=== PATIENT | female | born 1950 | race Caucasian/White ===

== ENCOUNTER 2017-06-07 17:32 | Inpatient (IN) | payer MEDICARE, OTHER ==
--- NOTE | 2017-06-07 17:58 | ED Physician Chart ---
ED Chief Complaint/HPI - Patient Information Date Seen:: 06/07/17 Time Seen:: 17:50 Chief Complaint:: agitation History of Present Illness:: Patient has been yelling and striking out at her [facility] facility. Historian:: Patient Review:: Nurse's Note Reviewed, Transfer documents Reviewed ED Review of Systems - Review of Systems General/Constitutional: No fever, No chills Skin: No skin lesions Head: No headache Eyes: No loss of vision ENT: No earache Neck: No neck pain Cardio Vascular: No chest pain, No palpitations Pulmonary: No SOB GI: No nausea, No vomiting, No diarrhea G/U: No dysuria Musculoskeletal: No bone or joint pain Endocrine: No polyuria, No polydipsia Psychiatric: No prior psych history, No depression Hematopoietic: No bruising Allergic/Immuno: No urticaria Neurological: No syncope ED Past Medical History - Past Medical History Past Medical History: HTN, Arthritis, Other (degenerative joint disease; bipolar ) Social History: Smoker, Care Facility Surgical History: other (gastric bypass) Psychiatricy History: Bipolar Medication: Reviewed Family Medical History - Family Member Mother History Unknown: Yes Ethnicity: Non- Living Status: Still Living ED Physical Exam - Physical Examination General/Constitutional: Awake, Well-developed, well-nourished, Alert Other Gen/Cons comments:: Alert and oriented to the correct month and year but not the date Head: Atraumatic Eyes: Lids, conjuctiva normal, PERRL Skin: Nl inspection, No rash, No skin lesions, No ecchymosis ENMT: External ears, nose nl, TM canals nl, Nasal exam nl, Oropharynx nl Other ENMT comments:: Upper lower dentures Neck: No mass Respiratory: Nl effort/Exclusion, Clear to Auscultation, No Wheeze/Rhonchi/Rales Cardio Vascular: RRR, No murmur, gallop, rubs, NL S1 S2 GI: No tenderness/rebounding/guarding, No organomegaly : No CVA tenderness Extremities: Normal digits & nails Neuro/Psych: No focal deficits ED Labs/Radiology/EKG Results - Lab Results Results: Laboratory Results - last 24 hr 06/07/17 06/07/17 06/07/17 18:06 18:06 18:06 WBC 5.7 RBC 4.06 Hgb 12.4 Hct 37.6 L MCV 92.5 MCH 30.5 MCHC Differential 33.0 RDW 18.4 Plt Count 308 MPV 7.4 Neutrophils % 54.6 Lymphocytes % 30.7 Monocytes % 11.1 H Eosinophils % 3.1 Basophils % 0.5 Sodium 136 Potassium 4.5 Chloride 106 Carbon Dioxide 23.8 Anion Gap 10.7 BUN 9 Creatinine 0.7 Est GFR ( Amer) > 60.0 Est GFR (Non-Af Amer) > 60.0 BUN/Creatinine Ratio 12.9 Glucose 86 Calcium 9.2 Total Bilirubin 0.3 AST 37 ALT 76 H Alkaline Phosphatase 144 H Total Protein 6.1 Albumin 4.0 Globulin 2.1 Albumin/Globulin Ratio 1.9 H Triglycerides 68 Cholesterol 180 LDL Cholesterol Direct 119 HDL Cholesterol 53 TSH 2.67 - EKG Interpretations Rate & Rhythm: normal sinus rhythm [place]: normal axis Comments:: Normal EKG ED Septic Shock - . Is Septic Shock (SBP<90, OR Lactate>4 mmol\L) present?: No ED Reassessment (Disposition) - Reassessment Reassessment Condition:: Unchanged - Diagnosis Diagnosis:: Bipolar disorder with agitation - Patient Disposition Admitted to:: [facility] Admitting Medical Physician:: Bradly Castillo Admitting Psych Physician:: Rosa Maria Markham Condition at Disposition:: Stable, Unchanged
[2017-06-07 18:14] LABS: % BASOPHILS 0.5 % (0.0-2.0); % EOSINOPHILS 3.1 % (0.0-5.0); % LYMPHOCYTES 30.7 % (20.0-50.0); % MONOCYTES 11.1 % (2.0-10.0); % NEUTROPHILS 54.6 % (40.0-80.0); EOSINOPHILE ABSOLUTE 0.2 Th/cmm (0.1-0.4); HEMATOCRIT 37.6 % (41.0-60); HEMOGLOBIN 12.4 gm/dL (12-16); LYMPHOCYTE ABSOLUTE 1.7 Th/cmm (1.5-3.0); MEAN CELL VOLUME 92.5 fl (81-100); MEAN CORPUSCULAR HEMOGLOBIN 30.5 pg (27.0-31.0); MEAN PLATELET VOLUME 7.4 fl; MONOCYTE ABSOLUTE 0.6 Th/cmm (0.3-1.0); NEUTROPHILE ABSOLUTE 3.2 Th/cmm (1.8-8.0); PLATELET COUNT 308 Th/cmm (150-400); RED BLOOD COUNT 4.06 Mil/cmm (3.80-5.10); RED CELL DISTRIBUTION WIDTH 18.4 % (11.5-20.0); WHITE BLOOD COUNT 5.7 Th/cmm (4.8-10.8)
[2017-06-07 19:01] LABS: ALB/GLOB RATIO 1.9 (1.0-1.8); ALKALINE PHOSPHATASE 144 U/L (34-104); ANION GAP 10.7 (7.0-16.0); BILIRUBIN,TOTAL 0.3 mg/dL (0.3-1.0); BUN - UREA NITROGEN 9 mg/dL (7-25); CALCIUM SERUM 9.2 mg/dL (8.6-10.3); CARBON DIOXIDE 23.8 mEq/L (21.0-31.0); CHLORIDE 106 mEq/L (98-107); CHOLESTEROL 180 mg/dL (<200); CREATININE - SERUM 0.7 mg/dL (0.6-1.2); GFR AFRICAN-AMERICAN > 60.0 ml/min (>90); GFR NON AFRICAN-AMERICAN > 60.0 ml/min; GLUCOSE 86 mg/dL (70-105); HDL -HIGH DENSITY LIPOPROTEIN 53 mg/dL (23-92); POTASSIUM SERUM 4.5 mEq/L (3.5-5.1); SGOT 37 U/L (13-39); SGPT/ALT 76 U/L (7-52); SODIUM SERUM 136 mEq/L (136-145); TOTAL PROTEIN,SERUM 6.1 gm/dL (6.0-8.3); TRIGLYCERIDES 68 mg/dL (<150)
[2017-06-07 20:04] LABS: A1C % 5.1 % (4.0-6.0)
[2017-06-07 20:29] VITALS: BP 117/67
[2017-06-07] MEDS ORDERED: Magnesium Hydroxide (MOM) 30 mL UDC PO PRN (22:27)
[2017-06-07] MEDS ORDERED: Maalox 30 mL Cup PO PRN (22:27)
[2017-06-08] MEDS ORDERED: Ferrous Sulfate 325 MG TAB PO SCH (09:00)
[2017-06-08] MEDS: Multivitamin Tab PO SCH (09:47)
--- NOTE | 2017-06-08 11:03 | History & Physical ---
ADMIT DATE: 06/07/2017 CHIEF COMPLAINT: Yelling, screaming and striking out staff at [facility]-way facility. HISTORY OF PRESENT ILLNESS: The patient is a confused 66-year-old female. She has history of hypertension, psychosis, dementia and neuropathy and anemia. She presents from half-way facility. She was transferred because she was yelling, screaming and striking out at the staff. She was also experiencing worsening confusion and lethargy and overall decline as well. PAST MEDICAL HISTORY: Significant for Alzheimer's dementia, neuropathic pain, insomnia, anemia of chronic illness. SOCIAL HISTORY: No history of alcohol, tobacco, or drug abuse. FAMILY HISTORY: Noncontributory. ALLERGIES: No known drug allergies. SURGICAL HISTORY: Apparently, she has history of gastric bypass. MEDICATIONS: All medication reviewed and reconciled. REVIEW OF SYSTEMS: GENERAL: Positive recent fatigue, decreased appetite and worsening confusion. HEENT: No recent head trauma or change in vision, taste, hearing, or smell. ORAL: No recent pain or discharge. NECK: No recent tracheal deviation. NEUROLOGIC: She has history of Alzheimer's dementia. PSYCHIATRIC: Positive for psychosis and bipolar disorder. EXTREMITIES: No recent edema. MUSCULOSKELETAL: She has history of unsteady gait. SKIN: No recent rashes. ABDOMEN: No recent pain or distension. RESPIRATORY: No history of COPD or asthma. MUSCULOSKELETAL: She does have a history of DJD, but no acute pain. GENITOURINARY: Denies any increased urinary frequency, urgency or dysuria. PHYSICAL EXAMINATION: VITAL SIGNS: Temperature 98 degrees, heart rate is 65, respiration is 18, blood pressure 140/68, currently no pain. GENERAL: No acute distress. She is awake. Currently, she is very confused, but she is pleasant, no aggressive behavior. Right now, she is resting. She does have labile mood. HEENT: No acute issues. NECK: Trachea is midline. CARDIOVASCULAR: Regular rate and rhythm. SKIN: No rashes. PSYCHIATRIC: She has labile mood. EXTREMITIES: No edema. MUSCULOSKELETAL: Decreased muscle strength in lower extremities. NEUROLOGIC: No evidence of acute stroke or seizure activity. She does have dementia. CARDIOVASCULAR: Regular rate and rhythm. LABORATORY DATA: White count of 5.7; hemoglobin is 12.4; platelet count is 208,000. Sodium 136, potassium 4.5, chloride 106, bicarbonate 23.8, BUN 9, creatinine 0.7, ALT 76, alkaline phosphatase 144. TSH 2.67. ASSESSMENT: 1. Hypertension. 2. Metabolic encephalopathy. 3. Transaminitis. 4. Dementia, Alzheimer's type with exacerbation. 5. Neuropathic pain. 6. Insomnia. 7. Bipolar disorder. PLAN: I have stopped the iron since the patient's hemoglobin is normal now. MCV is also normal. I will also stop the Motrin because of the side effect profile. Continue Tylenol as needed. However, I will do ultrasound of the abdomen because of transaminitis. Continue Neurontin for the neuropathic pain. Currently, she is stable. She is on spironolactone for her hypertension. Monitor electrolytes closely. Continue Ambien as needed for her insomnia. She can benefit from inpatient psychiatric care. Dr. Markham will be the psychiatrist on the case. JOB# [id number]
--- NOTE | 2017-06-08 13:10 | Diagnostic Imaging Report ---
Ultrasound abdomen HISTORY: Transaminitis COMPARISON: None Technique: Sonography of the abdomen was performed in multiple planes. FINDINGS: Exam is limited due to body habitus and bowel gas. The liver demonstrates mild increased echogenicity. The liver margins are not well-defined however no obvious focal lesions. The liver measures 16 cm. The gallbladder was not well visualized. Gallstones cannot be excluded. The common bile duct measures 5 mm. Evaluation of the pancreas is limited due to bowel gas. The right kidney measures 9.7 x 4.7 cm. No evidence of focal lesions or hydronephrosis. The left kidney measures 11.2 x 5.8 cm. 5 mm echogenic focus of the left kidney is noted. No evidence of hydronephrosis. The spleen measures 8 cm. IMPRESSION: Limited exam due to bowel gas and body habitus. The gallbladder was not well-visualized. If patient has a gallbladder, gallstones cannot be excluded and further assessment with additional images following appropriate fasting is recommended. No evidence of common bile duct dilatation. Mild increased echogenicity of the liver which may affect underlying hepatocellular disease. Please correlate clinically. 5 mm echogenic focus of the left kidney which may represent renal sinus fat versus a nonobstructive stone.
--- NOTE | 2017-06-09 02:33 | Psychosocial Evaluation ---
DATE OF SERVICE: 06/07/2017 IDENTIFYING DATA: The patient is a 66-year-old woman, resident of [facility]. Information obtained directly interviewing the patient as well as reviewing the admission papers and they are reliable. JUSTIFICATION FOR HOSPITALIZATION: The patient is admitted here on a voluntary basis in view of her acute mood swings and agitation. CHIEF COMPLAINT: "I do not know what they are talking about." HISTORY OF PRESENT ILLNESS: This is the first psychiatric hospitalization for this patient, who has been diagnosed to have bipolar disorder and the patient is reported to have been getting easily irritable, angry, and has been getting out of control. The patient could not be contained at a lower level of care and hence, the patient has been brought over here for stabilization. 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 The patient, during the interview, has been having difficult time to cope with the stress. The patient's coping skills at the time of the evaluation are noted to be poor. The patient's sleep and appetite are also noted to be poor. PAST PSYCHIATRIC HISTORY: Details are not known. MEDICAL HISTORY: Physical examination is requested to be done by Dr. Castillo. SUBSTANCE ABUSE HISTORY: None. PHYSICAL AND SEXUAL ABUSE HISTORY: None. LEGAL PROBLEMS: None at this time. MENTAL STATUS EXAMINATION: The patient is a 66-year-old woman, looking her stated age, sitting in the wheelchair. Coping skills are noted to be extremely poor. Sleep and appetite also noted to be poor. The patient has been having difficult time to cope with the stress. No side effects to the medications are noted at this time. The patient has been irritable and angry when I am asking the questions. The patient, however, is noted to be alert and oriented x 3. Attention span and concentration are noted to be fair at this time. No side effects to the medications are noted. ASSESSMENT: The patient's behavior is likely a danger to self and the patient is gravely disabled. DIAGNOSTIC IMPRESSION: AXIS I: Bipolar disorder, mixed with psychotic symptoms. AXIS II: None. AXIS III: As per Dr. Castillo. IMMEDIATE TREATMENT PLAN: The patient is going to be observed on the Inpatient Unit, provided with supportive psychotherapy. The patient is going to be closely monitored. Once stabilized, the patient is going to be discharged to self to be followed up on an outpatient basis. JOB# [id number] DANDRE
[2017-06-09] MEDS: Multivitamin Tab PO SCH (08:27)
--- NOTE | 2017-06-09 17:34 | Progress Notes ---
DATE: 06/09/2017 SUBJECTIVE: Staff was spoken to. The patient is interviewed. Mood is noted to be irritable. Affect is constricted. The patient is having acute mood swings. Insight and judgment at this time are noted to be impaired. Impulse control seems to be limited. Coping skills are noted to be limited. ASSESSMENT: The patient is still having acute mood swings. PLAN: To continue the patient with the current medications and followup. [facility]# [id number]
[2017-06-10] MEDS: Multivitamin Tab PO SCH (09:24)
--- NOTE | 2017-06-10 16:08 | Progress Notes ---
DATE: 06/10/2017 SUBJECTIVE: Staff was spoken to. The patient is interviewed. Mood is noted to be elated. Affect is labile. The patient's insight and judgment are at noted to be still impaired. Impulse control seems to be poor. The patient is very intrusive. Coping skills are noted to be very poor at this time. ASSESSMENT: The patient is still having acute mood swings. PLAN: To increase the dose on the Seroquel and follow up. JOB# [id number]
[2017-06-11] MEDS: Multivitamin Tab PO SCH (08:58)
--- NOTE | 2017-06-12 03:41 | Progress Notes ---
DATE: 06/11/2017 SUBJECTIVE: Staff was spoken to. The patient is interviewed. Mood is noted to be irritable. Affect is constricted. Insight and judgement at this time noted to be still impaired. Impulse control seems to be limited. The patient is currently on Seroquel 25 mg at bedtime and has also been feeling frustrated. The patient is stating that she has been eating a lot and has been getting too much of weight and she states that she does not like it. The patient is stating that the medications have been of some help to her so far and the patient has been able to tolerate. ASSESSMENT: The patient's mood swings are still a problem. PLAN: To continue the patient with the current medications. I encourage the patient to verbalize the concerns rather than to act out. [facility]# [id number]
--- NOTE | 2017-06-12 08:22 | Consultation ---
DATE OF CONSULTATION: 06/09/2017 REQUESTING PHYSICIAN: Rosa Maria Markham M.D. TYPE OF CONSULTATION: Psychology. HISTORY OF PRESENT ILLNESS: The patient is a 66-year-old female. The patient is a resident of [facility]. The patient is being admitted due to acute mood swings and increased agitation. The following is by review of the medical record and by the patient's self report. According to record review, the patient has been getting easily irritable and angry and demonstrating uncontrollable behavior according to the staff at the patient's facility. The patient states that she is having difficulty coping at her facility. The patient denied any responsibility for the behavior reported by the staff at her facility. The patient stated that she believes she is doing well and does not understand why she is being hospitalized. The patient denied any suicidal ideation, plan or intention or any hopelessness or helplessness. PAST MEDICAL HISTORY: Please see history and physical by Dr. Castillo. PAST PSYCHIATRIC HISTORY: Records unavailable at the time of the clinical interview. SUBSTANCE ABUSE HISTORY: The patient did not answer these questions and records are unavailable. CURRENT MEDICATIONS: Please see admission medication reconciliation. PSYCHOSOCIAL HISTORY: The patient is a resident of [facility]. 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 She has no specific sikhism affiliation. The patient did not answer questions about history of physical or sexual abuse. The patient stated there are no legal issues. MENTAL STATUS EXAMINATION: The patient appears to be her stated age. The patient's attitude is superficially cooperative. The patient's eye contact is fair. Speech is spontaneous, but somewhat pressured. The patient's mood seems to be fluctuating from cooperation to irritability during the clinical interview. Affect is broad. Thought process seems to be concrete and perseverating on the issue of being hospitalized. The patient denies any behavioral problems at her facility. Impulse control is inadequate. Sensorium is alert and oriented x3. Concentration seems to be fair. She was able to sustain focus and answer most of the clinical interview questions even though she became irritable during the interview. The patient did not participate in the memory assessment. Immediate memory seems to be intact. Short term memory is fair to poor. Long-term memory needs further evaluation. The patient did not participate in the interpretation of proverbs. Insight is poor. Judgment is compromised. DIAGNOSTIC IMPRESSION: AXIS I: Bipolar disorder, mixed, with psychotic symptoms. AXIS II: Deferred. AXIS III: Please see history and physical by Dr. Castillo. PLAN: The patient has been seen by Dr. Markham for psychiatric evaluation and for the management of the patient's psychotropic medications. We will provide supportive psychotherapy to include coping mechanisms with chronic long-term mental illness. We will provide a simple de-escalation skill as well as motivational enhancement for the patient to become compliant and stay compliant with all aspects of her care and treatment plan. We will provide coping strategies to encourage the patient to verbalize her concerns versus acting out and to be able to regulate her emotions so that she can communicate with staff at her facility. Thank you, Dr. Markham for this consult and the opportunity to participate with you in this patient's care. JOB# [id number] DANDRE
[2017-06-12] MEDS: Multivitamin Tab PO SCH (08:52)
--- NOTE | 2017-06-12 19:53 | Progress Notes ---
DATE: 06/12/2017 SUBJECTIVE: Staff was spoken to. The patient is interviewed. Mood is depressed. Affect is constricted. Coping skills are noted to be still poor. Insight and judgment are also noted to be impaired. No side effects to the medications are noted. The patient is currently on 10 mg of ____ and 25 mg of the Seroquel and has been able to tolerate the medications. No side effects to the medications are noted. ASSESSMENT: The patient is still depressed. PLAN: To continue the patient with the supportive therapy, encouraged the patient to verbalize the concerns rather than to act out. JOB# [id number]
[2017-06-13] MEDS: Multivitamin Tab PO SCH (09:33)
--- NOTE | 2017-06-13 16:30 | Progress Notes ---
DATE: 06/13/2017 PSYCHIATRIC PROGRESS NOTE SUBJECTIVE: Staff was spoken to. The patient is interviewed. Mood is noted to be irritable. Affect is constricted. Coping skills are noted to be still poor. Sleep and appetite are also noted to be poor. The patient has been having difficult time to cope with the stress. The patient is currently on Prozac and has been able to tolerate. ASSESSMENT: The patient is still depressed. PLAN: To continue the patient with the supportive therapy and followup. [facility]# [id number]
[2017-06-14] MEDS: Multivitamin Tab PO SCH (09:10)
--- NOTE | 2017-06-15 02:26 | Progress Notes ---
DATE: 06/14/2017 SUBJECTIVE: Staff was spoken to. The patient is interviewed. Mood is noted to be irritable. Affect is constricted. Insight and judgment are noted to be still improving. Impulse control seems to be limited. The patient has been stating that she is feeling ill and very depressed today and the patient did not sleep well last night. No side effects to the medications are noted. Continues to have paranoia. PLAN: To increase the dose on the Seroquel to 50 mg. I encouraged the patient to verbalize the concerns rather than to act out. The patient is not ready to be discharged to a lower level of care yet because of her mood swings and impulsivity. JOB# [id number]
[2017-06-15] MEDS: Multivitamin Tab PO SCH (09:51)
--- NOTE | 2017-06-15 10:39 | General Progress Note ---
Subjective - Review of Systems Service Date: 06/15/17 Events since last encounter: Nursing called me because the patient is unstable on her feet and is a fall risk. A pt eval has been requested. Patient is currently using a wheelchair for ambulation. No recent falls. Subjective: The patient is resting in her wheelchair. No s/s pain or distress. Denies fevers or chills. Denies chest pain, sob, abd pain, dysuria or falls. Objective - Results Result Diagrams: 06/07/17 18:06 06/07/17 18:06 Recent Labs: Laboratory Last Values WBC 5.7 Th/cmm (4.8-10.8) 06/07/17 18: RBC 4.06 Mil/cmm (3.80-5.10) 06/07/17 18: Hgb 12.4 gm/dL (12-16) 06/07/17 18: Hct 37.6 % (41.0-60) L 06/07/17 18: MCV 92.5 fl (81-100) 06/07/17 18: MCH 30.5 pg (27.0-31.0) 06/07/17 18: MCHC Differential 33.0 pg (28.0-36.0) 06/07/17 18: RDW 18.4 % (11.5-20.0) 06/07/17 18: Plt Count 308 Th/cmm (150-400) 06/07/17 18: MPV 7.4 fl 06/07/17 18: Neutrophils % 54.6 % (40.0-80.0) 06/07/17 18: Lymphocytes % 30.7 % (20.0-50.0) 06/07/17 18: Monocytes % 11.1 % (2.0-10.0) H 06/07/17 18: Eosinophils % 3.1 % (0.0-5.0) 06/07/17 18: Basophils % 0.5 % (0.0-2.0) 06/07/17 18:06 Sodium 136 mEq/L (136-145) 06/07/17 18: Potassium 4.5 mEq/L (3.5-5.1) 06/07/17 18:06 Chloride 106 mEq/L (98-107) 06/07/17 18:06 Carbon Dioxide 23.8 mEq/L (21.0-31.0) 06/07/17 18:06 Anion Gap 10.7 (7.0-16.0) 06/07/17 18:06 BUN 9 mg/dL (7-25) 06/07/17 18:06 Creatinine 0.7 mg/dL (0.6-1.2) 06/07/17 18: Est GFR ( Amer) > 60.0 ml/min (>90) 06/07/17 18:06 Est GFR (Non-Af Amer) > 60.0 ml/min 06/07/17 18: BUN/Creatinine Ratio 12.9 06/07/17 18: Glucose 86 mg/dL (70-105) 06/07/17 18: Hemoglobin A1c % 5.1 % (4.0-6.0) 06/07/17 18: Calcium 9.2 mg/dL (8.6-10.3) 06/07/17 18: Total Bilirubin 0.3 mg/dL (0.3-1.0) 06/07/17 18:06 AST 37 U/L (13-39) 06/07/17 18:06 ALT 76 U/L (7-52) H 06/07/17 18:06 Alkaline Phosphatase 144 U/L (34-104) H 06/07/17 18:06 Total Protein 6.1 gm/dL (6.0-8.3) 06/07/17 18: Albumin 4.0 gm/dL (3.7-5.3) 06/07/17 18: Globulin 2.1 gm/dL 06/07/17 18: Albumin/Globulin Ratio 1.9 (1.0-1.8) H 06/07/17 18:06 Triglycerides 68 mg/dL (<150) 06/07/17 18:06 Cholesterol 180 mg/dL (<200) 06/07/17 18:06 LDL Cholesterol Direct 119 mg/dL (75-193) 06/07/17 18:06 HDL Cholesterol 53 mg/dL (23-92) 06/07/17 18: TSH 2.67 uIU/ml (0.34-5.60) 06/07/17 18:06 RPR NONREACTIVE (NONREACTIVE) 06/07/17 18:06 - Physical Exam Vitals and I&O: Vital Signs Temp 98.5 F 06/14/17 14:30 Pulse 72 06/15/17 09:52 Resp 18 06/14/17 14:30 BP 120/62 06/15/17 09:52 Pulse Ox 98 06/14/17 14:30 Active Medications: Current Medications Acetaminophen (Tylenol) 650 mg PO Q4HR PRN PRN Reason: Mild Pain / Temp above 100 Stop: 08/06/17 22:26 Last Admin: 06/15/17 05:35 Dose: 650 mg Al Hydrox/Mg Hydrox/Simethicone (Maalox) 30 ml PO Q4HR PRN PRN Reason: GI DISTRESS Stop: 08/06/17 22:26 Ascorbic Acid (Vitamin C) 500 mg PO DAILY [facility] Stop: 08/07/17 08:59 Last Admin: 06/15/17 09:52 Dose: 500 mg Docusate Sodium (Colace) 100 mg PO BID [facility] Stop: 08/07/17 08:59 Last Admin: 06/15/17 09:52 Dose: 100 mg Fluoxetine HCl (Prozac) 10 mg PO DAILY [facility] PRN Reason: Protocol Stop: 08/07/17 08:59 Last Admin: 06/15/17 09:51 Dose: 10 mg Gabapentin (Neurontin) 300 mg PO TID [facility] Stop: 08/07/17 08:59 Last Admin: 06/15/17 09:51 Dose: 300 mg Lorazepam (Ativan) 0.5 mg PO Q4HR PRN; Protocol PRN Reason: Anxiety/AGITATION Stop: 07/07/17 22:26 Last Admin: 06/07/17 23:29 Dose: 0.5 mg Multivitamins/Vitamin C (Theragran) 1 tab PO DAILY [facility] Stop: 08/07/17 08:59 Last Admin: 06/15/17 09:51 Dose: 1 tab Quetiapine Fumarate (Seroquel) 50 mg PO HS [facility] PRN Reason: Protocol Stop: 08/13/17 19:11 Last Admin: 06/14/17 20:32 Dose: 50 mg Spironolactone (Aldactone) 25 mg PO DAILY [facility] Stop: 08/07/17 08:59 Last Admin: 06/15/17 09:52 Dose: 25 mg Trazodone HCl (Desyrel) 25 mg PO HS [facility] PRN Reason: Protocol Stop: 08/07/17 20:59 Last Admin: 06/14/17 20:32 Dose: 25 mg Zolpidem Tartrate (Ambien) 5 mg PO HS PRN PRN Reason: Insomnia Stop: 08/06/17 22:26 Last Admin: 06/14/17 20:32 Dose: 5 mg General: Cooperative, No acute distress HEENT: PERRLA, EOMI Neck: Supple Cardiovascular: Regular rate, Normal S1, Normal S2 Lungs: Clear to auscultation, Normal air movement Abdomen: Bowel sounds Neurological: Other (ms str 4/5) Psych/Mental Status: Other (confused) Assessment/Plan - Assessment Assessment: metabolic encephalopathy 2/2 dementia exacerbation htn transamnitis neuropathy insomnia bipolar d/o - Plan Plan: A pt eval was ordered. Monitor for falls. No recent falls. Fall precautions. Out of wheelchair with assistance. Continue psychiatric tx Nutritional Asmnt/Malnutr-PDOC - Dietary Evaluation Malnutrition Findings (Please click <Entered> for more info): Nutritional Asmnt/Malnutrition Start: 06/12/17 17: 10 Text: Status: Complete Freq: Document 06/12/17 17:11 LIDIA (Rec: 06/12/17 17:15 [facility] Nutritional Asmnt/Malnutrition Patient General Information Nutritional Screening Moderate Risk Diagnosis psychosis Pertinent Medical Hx/Surgical Hx HTN, psychosis, dementia, neuropathy, anemia, insomnia Subjective Information Pt seen sitting in dinning room, having lunch, alert and pleasant. Pt reported good appetitie, no food preference. Per EMR, PO intake 100% Current Diet Order/ [facility] finely chopped, ANDREW Pertinent Medications vit C, coalce, theragran, serqoeul Pertinent Labs 06/07 nutrition labs WNL Nutritional Hx/Data Height 1.63 m Height (Calculated Centimeters) 162.6 Current Weight (lbs) 63.503 kg Weight (Calculated Kilograms) 63.5 Weight (Calculated Grams) 58226.9 [place] Body Weight 120 Body Mass Index (BMI) 24.0 Weight Status Approriate GI Symptoms GI Symptoms None Last BM 4/2 Difficult in: None Skin Integrity/Comment: intact Current %PO Good (75-100%) Estimated Nutritional Goals BEE in Kcals: Using Current wt Calories/Kcals/Kg 25-30 Kcals Calculated 1392-5127 Protein: Using Current wt Protein g/k Protein Calculated 64 Fluid: ml 1600-1920ml (1ml/ckal) Nutritional Problem No current Nutrition Prob Problem N/A Malnutrition Alert Protein-Calorie Malnutrition Non-Severe Is there a minimum of two criteria No selected? Query Text:Check all the applicable criteria. A minimum of two criteria are recommended for diagnosis of either severe or non-severe malnutrition. Intervention/Recommendation Comments 1. Continue with current diet as ordered. 2. Monitor PO intake, wt, labs and skin integrity 3. F/U as low risk in 7 days, 10 Expected Outcomes/Goals Expected Outcomes/Goals 1. PO intake to meet at least 75% of nutritional needs. 2. Wt stability, skin to remain intact, labs to approach WNL.
--- NOTE | 2017-06-16 04:18 | Progress Notes ---
DATE: 06/15/2017 SUBJECTIVE: Staff was spoken to. The patient is interviewed. Mood is noted to be irritable. Affect is constricted. The patient has paranoia. The patient has been a little bit confused this evening and has been going on a tangent. Insight and judgment noted to be still impaired. Impulse control is noted to be poor. The patient has been able to tolerate the Seroquel and Prozac. No side effects to the medications are noted. ASSESSMENT: The patient is still having the impulsivity. PLAN: To continue the patient with the supportive therapy and followup. JOB# [id number]
[2017-06-16] MEDS: Multivitamin Tab PO SCH (08:55)
--- NOTE | 2017-06-16 16:56 | Progress Notes ---
DATE: 06/16/2017 PSYCHIATRIC PROGRESS NOTE IDENTIFYING DATA: The patient is cooperative. Eye contact is fair. Mood is irritable. Affect is constricted. Insight and judgment at this time are noted to be improving. Impulse control seems to be fair today. No side effects to the medications are noted. The patient's sleep and appetite are noted to be improving at this time. The patient is currently on low dose of Prozac and Seroquel and has been able to tolerate the medications. ASSESSMENT: The patient's mood swings are coming under control. PLAN: To continue the patient with the supportive therapy. I encouraged the patient to verbalize the concerns rather than to act out. JOB# [id number]
[2017-06-17] MEDS: Multivitamin Tab PO SCH (08:17)
--- NOTE | 2017-06-17 17:12 | Progress Notes ---
DATE: 06/17/2017 SUBJECTIVE: Staff was spoken to. The patient is interviewed. Mood is noted to be less irritable. Mood swings are coming under control. Sleep and appetite also noted to be improving. No side effects to the medications are noted. The patient has been able to verbalize the concerns rather than to act out. ASSESSMENT: The patient is stabilizing. PLAN: To continue the patient with the current medications and follow up with the supportive therapy. JOB# [id number]
[2017-06-18] MEDS: Multivitamin Tab PO SCH (08:52)
--- NOTE | 2017-06-19 02:02 | Progress Notes ---
DATE: 06/18/2017 SUBJECTIVE: Staff was spoken to. The patient is interviewed. Mood is noted to be irritable. Affect is constricted. Insight and judgment at this time are noted to be improving. Impulse control seems to be fair. The patient's mood swings are coming under control. The patient has been able to verbalize the concerns rather than to act out. No side effects to the medications are noted. ASSESSMENT: The patient is stabilizing. PLAN: To discharge the patient today for followup on an outpatient basis. JOB# [id number]
== END 2017-06-18 20:30 | DRG 885 ==
LOC: ER 17:32 → GERO 19:38
PROVIDERS: ADMIT Psychiatry & Neurology Psychiatry; ATTEND Psychiatry & Neurology Psychiatry
DX: F31.64 Bipolar disorder, current episode mixed, severe, with psychotic features (principal); F02.81 Dementia in other diseases classified elsewhere, unspecified severity, with behavioral disturbance; G93.41 Metabolic encephalopathy; G30.9 Alzheimer's disease, unspecified; I10 Essential (primary) hypertension; G62.9 Polyneuropathy, unspecified; G47.00 Insomnia, unspecified; R74.0 Nonspecific elevation of levels of transaminase and lactic acid dehydrogenase [LDH]; F17.210 Nicotine dependence, cigarettes, uncomplicated; M19.90 Unspecified osteoarthritis, unspecified site
CPT/HCPCS: 36415-UA; 76700-TC; 80053-TC; 80061-TC; 83036-90; 84443-TC; 85025-TC; 86592-TC; 90899; 93005; 97530; G0410; X3904; Z7610

== ENCOUNTER 2018-01-07 21:00 | Inpatient (IN) | payer MEDICARE, OTHER ==
[2018-01-07 21:48] LABS: % BASOPHILS 0.9 % (0.0-2.0); % EOSINOPHILS 3.3 % (0.0-5.0); % LYMPHOCYTES 25.6 % (20.0-50.0); % MONOCYTES 10.6 % (2.0-10.0); % NEUTROPHILS 59.6 % (40.0-80.0); BASOPHILE ABSOLUTE 0.1 Th/cumm (0-0.2); EOSINOPHILE ABSOLUTE 0.2 Th/cmm (0.1-0.4); HEMATOCRIT 37.1 % (41.0-60); HEMOGLOBIN 12.1 gm/dL (12-16); LYMPHOCYTE ABSOLUTE 1.9 Th/cmm (1.5-3.0); MEAN CELL VOLUME 93.5 fl (81-100); MEAN CORPUSCULAR HEMOGLOBIN 30.5 pg (27.0-31.0); MEAN CORPUSCULAR HGB CONC 32.6 pg (28.0-36.0); MEAN PLATELET VOLUME 7.4 fl; MONOCYTE ABSOLUTE 0.8 Th/cmm (0.3-1.0); NEUTROPHILE ABSOLUTE 4.5 Th/cmm (1.8-8.0); PLATELET COUNT 325 Th/cmm (150-400); RED BLOOD COUNT 3.96 Mil/cmm (3.80-5.20); RED CELL DISTRIBUTION WIDTH 19.4 % (11.5-20.0); WHITE BLOOD COUNT 7.5 Th/cmm (4.8-10.8)
[2018-01-07 22:12] LABS: ACETAMINOPHEN < 10.0 ug/mL (10.0-30.0); ALB/GLOB RATIO 1.8 (1.0-1.8); ALBUMIN 3.6 gm/dL (3.7-5.3); ALKALINE PHOSPHATASE 86 U/L (34-104); BILIRUBIN,TOTAL 0.3 mg/dL (0.3-1.0); BUN - UREA NITROGEN 12 mg/dL (7-25); CALCIUM SERUM 8.4 mg/dL (8.6-10.3); CARBON DIOXIDE 24.9 mEq/L (21.0-31.0); CHLORIDE 105 mEq/L (98-107); CHOLESTEROL 167 mg/dL (<200); CREATININE - SERUM 0.7 mg/dL (0.6-1.2); GFR AFRICAN-AMERICAN > 60.0 ml/min (>90); GFR NON AFRICAN-AMERICAN > 60.0 ml/min; GLUCOSE 88 mg/dL (70-105); HDL -HIGH DENSITY LIPOPROTEIN 51 mg/dL (23-92); POTASSIUM SERUM 3.9 mEq/L (3.5-5.1); SGOT 14 U/L (13-39); SGPT/ALT 20 U/L (7-52); SODIUM SERUM 138 mEq/L (136-145); TOTAL PROTEIN,SERUM 5.6 gm/dL (6.0-8.3); TRIGLYCERIDES 67 mg/dL (<150)
[2018-01-07 22:23] LABS: SALICYLATES (ASPIRIN) < 25.0 mg/L (30.0-100.0)
[2018-01-07] MEDS ORDERED: Hydrocodone/APAP 5mg/325mg Tab PO ONE (23:04)
[2018-01-07] MEDS ORDERED: Hydrocodone/APAP 5mg/325mg Tab ONE (23:08)
--- NOTE | 2018-01-07 23:11 | ED Physician Chart ---
ED Chief Complaint/HPI - Patient Information Date Seen:: 01/07/18 Time Seen:: 21:35 Chief Complaint:: jeffrey psyc History of Present Illness:: location: general quality: depressed mood and behavior severity: moderate duration: one day context: SNF pt with depression history. is reported to have been having more depressed mood and behavior at facility, choosing to avoid group activities and withdrawing. facility staff report this to PCP who feels pt is having significant symptoms. no suicidal ideation is reported by staff or patient. pt sent to ER for medical clearance and geriatric psychiatric evaluation and treatment. pt reports no CP, no SOB. some chronic pain, requests her routine norco medication pill. mod factors: None assoc s/s: none hx from PCP, SNF RN, EMS and some history from patient Allergies:: Allergies Allergy/AdvReac Type Severity Reaction Status Date / Time sulfacetamide Allergy Verified 06/07/17 18:19 [From Sulfamide] Vitals:: Vital Signs - 8 hr 01/07/18 21:05 Temp 98.2 F HR 65 RR 18 BP 132/75 O2 Sat % 97 Historian:: Patient, EMS, Other Review:: Nurse's Note Reviewed, EMS run form Reviewed ED Review of Systems - Review of Systems General/Constitutional: No fever Skin: No rash Eyes: No diplopia ENT: No sore throat Neck: No stiffness Cardio Vascular: No edema Pulmonary: No wheezing GI: No vomiting Sales Producer: No abnormal vaginal bleed Psychiatric: Depression Hematopoietic: No bruising Allergic/Immuno: No angioedema Neurological: No syncope, No seizure ED Past Medical History - Past Medical History Past Medical History: Other (sleep disorder) Family History: None Social History: Non Smoker, No Alcohol, No Drug Use, Single, Care Facility Psychiatricy History: Depression, Other (anxiety) Medication: Reviewed Family Medical History - Family Member Mother History Unknown: Yes Ethnicity: Unknown Living Status: Unknown ED Physical Exam - Physical Examination General/Constitutional: Awake, Well-developed, well-nourished, Alert, No distress, GCS 15 (clear speech), Non-toxic appearing Head: Atraumatic Eyes: Lids, conjuctiva normal, PERRL, EOMI Skin: Nl inspection, No skin lesions, Well hydrated ENMT: External ears, nose nl, Nasal exam nl, Oropharynx nl, Tonsils nl Neck: Nontender, Full ROM w/o pain, No nuchal rigidity Respiratory: Nl effort/Exclusion, Clear to Auscultation, No Wheeze/Rhonchi/Rales Cardio Vascular: RRR GI: No tenderness/rebounding/guarding, Nondistended, No McBurney tenderness : No CVA tenderness Extremities: No tenderness or effusion, normal strength in all extremities, No edema Neuro/Psych: Alert/oriented, Normal sensory exam, Judgement/insight normal ( depressed mood and behavior), No focal deficits Misc: Normal back, No paraspinal tenderness ED Labs/Radiology/EKG Results - Lab Results Results: Laboratory Tests 01/07/18 01/07/18 21:27 21:40 WBC 7.5 RBC 3.96 Hgb 12.1 Hct 37.1 L MCV 93.5 MCH 30.5 MCHC Differential 32.6 RDW 19.4 Plt Count 325 MPV 7.4 Neutrophils % 59.6 Lymphocytes % 25.6 Monocytes % 10.6 H Eosinophils % 3.3 Basophils % 0.9 Sodium 138 Potassium 3.9 Chloride 105 Carbon Dioxide 24.9 Anion Gap 12.0 BUN 12 Creatinine 0.7 Est GFR ( Amer) > 60.0 Est GFR (Non-Af Amer) > 60.0 BUN/Creatinine Ratio 17.1 Glucose 88 Calcium 8.4 L Total Bilirubin 0.3 AST 14 ALT 20 Alkaline Phosphatase 86 Total Protein 5.6 L Albumin 3.6 L Globulin 2.0 Albumin/Globulin Ratio 1.8 Triglycerides 67 Cholesterol 167 LDL Cholesterol Direct 106 HDL Cholesterol 51 Salicylates < 25.0 L Acetaminophen < 10.0 L Ethyl Alcohol < 10 ED Assessment - Assessment General Assessment: medical decision making pt with stable vital signs during ER stay. requests her routine med norco. given to patient. pt with some improvement in depressed mood after norco administration pt is medically clear [facility] ED Septic Shock - . Is Septic Shock (SBP<90, OR Lactate>4 mmol\L) present?: No - <6hrs of presentation: Vital Signs: Vital Signs - 8 hr 01/07/18 21:05 Temp 98.2 F HR 65 RR 18 BP 132/75 O2 Sat % 97 Assessment of Lungs: Lung CTA bilateral Assessment of Heart: RRR EKG Interpretation: NSR Capillary refill evaluation: Capillary refill < 2 secs Skin Exam: Warm, Dry, Good Turgur ED Reassessment (Disposition) - Reassessment Reassessment:: pt in stable condition while in ER. some mild depressed mood, no acute suicidal behavior is observed during ER stay. Reassessment Condition:: Unchanged - Diagnosis Diagnosis:: medical clearance for Jeffrey-Psyc - Patient Disposition Discharge/Transfer:: Acute Care w/in this hosp Admitted to:: [facility] Admitting Medical Physician:: Rosa Maria Markham Admitting Psych Physician:: Marco Ramirez Time:: 23:15 Condition at Disposition:: Stable
[2018-01-07 23:47] VITALS: BP 126/95
[2018-01-08] MEDS ORDERED: Hydrocodone/APAP 5mg/325mg Tab PO PRN (06:43)
[2018-01-08] MEDS ORDERED: Maalox 30 mL Cup PO PRN (06:43)
[2018-01-08] MEDS: Magnesium Hydroxide (MOM) 30 mL UDC PO SCH (09:02)
[2018-01-08] MEDS: Multivitamin Tab PO SCH (09:02)
--- NOTE | 2018-01-08 13:31 | History and Physical ---
History of Present Illness - HPI Chief Complaint: depression HPI: This is a 67-year old female who is a correction resident admitted to the geropsych unit due to depression. Vital Signs: Last Vital Signs Temp 97.8 F 01/08/18 05:13 Pulse 70 01/08/18 09:01 Resp 19 01/08/18 05:13 BP 115/64 01/08/18 09:01 Pulse Ox 90 01/08/18 05:13 Past Medical History Other History: anemia depression anxiety constipation chronic pain sx Family Medical History - Family Member Mother History Unknown: Yes Ethnicity: Unknown Living Status: Unknown Hx Family Cancer: (unknown) Hx Family Coronary Artery Disease: (unknown) Hx Family Congestive Heart Failure: (unknown) Hx Family Hypertension: (unknown) Hx Family Stroke: (unknown) Hx Family Diabetes: (unknown) Hx Family Seizures: (unknown) Hx Family Dementia: (unknown) Hx Family AIDS: (unknown) Hx Family COPD: (unknown) Hx Family Hepatitis: (unknown) Hx Family Psychiatric Problems: (unknown) Hx Family Tuberculosis: (unknown) Social History Smoke: No Alcohol: None Drugs: None Lives: Group Home - Medications Home Medications: Home Medication Medication Instructions Recorded Type Bisacodyl [Dulcolax 10 Mg Supp] 10 mg RC DAILY PRN 06/07/17 History Ferrous Sulfate [Iron] 1 tab PO BID 06/07/17 History Ibuprofen [Motrin*] 800 mg PO TID 06/07/17 History Lactobacillus Combination No.4 1 cap PO DAILY 06/07/17 History [Probiotic] Magnesium Hydroxide [Milk of 30 ml PO DAILY 06/07/17 History Magnesia] Trazodone HCl 25 mg PO HS 06/07/17 History Acetaminophen [Tylenol] 650 mg PO Q4HR PRN tab 06/18/17 Rx Al Hyd/Mg Hyd/Simethicone [Maalox] 30 ml PO Q4HR PRN udc 06/18/17 Rx Ascorbic Acid [Vitamin C] 500 mg PO DAILY tab 06/18/17 Rx Docusate Sodium [Colace] 100 mg PO BID cap 06/18/17 Rx FLUoxetine HCL [PROzac] 10 mg PO DAILY cap 06/18/17 Rx Gabapentin [Neurontin*] 300 mg PO TID cap 06/18/17 Rx Lorazepam [Ativan] 0.5 mg PO Q4HR PRN tab 06/18/17 Rx Multivitamin [Theragran] 1 tab PO DAILY tab 06/18/17 Rx Spironolactone [Aldactone] 25 mg PO DAILY tab 06/18/17 Rx Zolpidem Tartrate [Ambien] 5 mg PO HS PRN tab 06/18/17 Rx Hydrocodone/APAP 5mg/325mg [[place] 1 tab PO Q4H PRN 01/07/18 History 5mg/325mg] - Allergies Allergies/Adverse Reactions: Allergies Allergy/AdvReac Type Severity Reaction Status Date / Time sulfacetamide Allergy Verified 06/07/17 18:19 [From Sulfamide] Review of Systems - Review of Systems Constitutional: Report: No Significant Eyes: Report: No Significant Respiratory: Report: No Significant Cardiovascular: Report: No Significant Neurological: Report: No Significant Physical Exam - Physical Exam HEENT: Report: Ears Nose Throat within normal limits Neck: Report: Within normal limits Cardiovascular Systems: Report: +s1/s2 noted, Regular, Rate and Rhythm Respiratory: Report: Breath Sounds are within normal limits, Clear to Auscultation of lung young Abdomen: Report: Non-tender to palpation Back: Report: Inspection of back is within normal limits. Skin: Report: Warm, Dry Neuro/Psych: Report: Depressed affect - Lab Results All Lab Results last 24 hours: Laboratory Results - last 24 hr 01/07/18 01/07/18 01/07/18 21:27 21:40 21:40 WBC 7.5 RBC 3.96 Hgb 12.1 Hct 37.1 L MCV 93.5 MCH 30.5 MCHC Differential 32.6 RDW 19.4 Plt Count 325 MPV 7.4 Neutrophils % 59.6 Lymphocytes % 25.6 Monocytes % 10.6 H Eosinophils % 3.3 Basophils % 0.9 Sodium 138 Potassium 3.9 Chloride 105 Carbon Dioxide 24.9 Anion Gap 12.0 BUN 12 Creatinine 0.7 Est GFR ( Amer) > 60.0 Est GFR (Non-Af Amer) > 60.0 BUN/Creatinine Ratio 17.1 Glucose 88 Calcium 8.4 L Total Bilirubin 0.3 AST 14 ALT 20 Alkaline Phosphatase 86 Total Protein 5.6 L Albumin 3.6 L Globulin 2.0 Albumin/Globulin Ratio 1.8 Triglycerides 67 Cholesterol 167 LDL Cholesterol Direct 106 HDL Cholesterol 51 TSH 3.82 Salicylates < 25.0 L Acetaminophen < 10.0 L Ethyl Alcohol < 10 - Assessment Assessment: depression anemia chronic pain syndrome - Plan Plan: fall precautions continue current meds from snf continue current plan of care
[2018-01-08] MEDS: Ferrous Sulfate 325 MG TAB PO SCH (16:49)
--- NOTE | 2018-01-09 03:19 | Psychiatric Evaluation ---
DATE OF SERVICE: 01/07/2018 IDENTIFYING DATA: The patient is a 67-year-old woman, resident of a [facility]. Information obtained by directly interviewing the patient and is reliable. JUSTIFICATION FOR HOSPITALIZATION: The patient is admitted in view of her depression. CHIEF COMPLAINT: "I'm not feeling well, "I'm feeling depressed." HISTORY OF PRESENT ILLNESS: This is one of multiple psychiatric hospitalizations for this patient who is reported to have been feeling depressed. The patient has been diagnosed to have bipolar disorder and was reported to have been doing fairly well with the medication, but the patient is reporting for the past couple of weeks, she has been feeling depressed and is not sleeping well and appetite is also noted to be very poor. 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 Sleep is noted to be poor. Appetite is also noted to be poor. PAST PSYCHIATRIC HISTORY: Details are not known. MEDICAL HISTORY: Physical examination is requested to be done by Dr. Ramirez. SUBSTANCE ABUSE HISTORY: None. PHYSICAL OR SEXUAL ABUSE HISTORY: None. LEGAL PROBLEMS: None at this time. STRENGTH AND ASSETS: The patient is motivated. LIABILITIES: Poor coping skills. MENTAL STATUS EXAMINATION: The patient is a 67-year-old woman looking her stated age, superficially cooperative. Eye contact is poor. Mood is noted to be irritable. Affect is constricted. Insight and judgment at this time are noted to be still impaired. Impulse control is noted to be limited. Coping skills are noted to be limited. The patient has vague suicidal ideation, but no plans are voiced. The patient has been getting easily frustrated. The patient at this time is not able to care for self. DIAGNOSTIC IMPRESSION: AXIS I: Bipolar disorder, depressed. AXIS II: None. AXIS III: As per Dr. Ramirez. IMMEDIATE TREATMENT PLAN: The patient is going to be observed on the inpatient unit. Provided with supportive psychotherapy. The patient is going to be closely monitored. Once stabilized, the patient is going to be discharged to [facility] to be followed up on an outpatient basis. JOB# [id number]
[2018-01-09] MEDS: Multivitamin Tab PO SCH (09:16)
[2018-01-09] MEDS: Lactobacillus Rhamnosus GG 15 Billion CFU CAP.SPRINK PO SCH (09:16)
[2018-01-09] MEDS: Ferrous Sulfate 325 MG TAB PO SCH ×2 (09:17→17:52)
[2018-01-09] MEDS: Magnesium Hydroxide (MOM) 30 mL UDC PO SCH (09:17)
--- NOTE | 2018-01-09 10:08 | Progress Notes ---
DATE: 01/09/2018 SUBJECTIVE: Staff was spoken to. The patient is interviewed. Mood is noted to be depressed. Affect is constricted. Insight and judgment at this time are noted to be still impaired. The patient is isolative and withdrawn. Coping skills are noted to be very poor. The patient is currently on Prozac and has been able to tolerate the medications. No side effects to the medications are noted. ASSESSMENT: The patient is still depressed. PLAN: To continue the patient with the supportive therapy, encouraged the patient to verbalize the concerns rather than to act out. JOB# [id number]
--- NOTE | 2018-01-09 11:57 | Internal Medicine Prog Note ---
Internal Medicine Subjective - Subjective Service Date: 01/09/18 Patient seen and examined:: with staff Patient is:: awake, verbal Per staff patient has:: tolerating meds Internal Medicine Objective - Results Result Diagrams: 01/07/18 21:01/07/18 21:40 Recent Labs: Laboratory Last Values WBC 7.5 Th/cmm (4.8-10.8) 01/07/18 21: RBC 3.96 Mil/cmm (3.80-5.20) 01/07/18 21: Hgb 12.1 gm/dL (12-16) 01/07/18 21: Hct 37.1 % (41.0-60) L 01/07/18: MCV 93.5 fl (81-100) 01/07/18 21: MCH 30.5 pg (27.0-31.0) 01/07/18: MCHC Differential 32.6 pg (28.0-36.0) 01/07/18: RDW 19.4 % (11.5-20.0) 01/07/18 21: Plt Count 325 Th/cmm (150-400) 01/07/18 21: MPV 7.4 fl 01/07/18 21: Neutrophils % 59.6 % (40.0-80.0) 01/07/18 21: Lymphocytes % 25.6 % (20.0-50.0) 01/07/18: Monocytes % 10.6 % (2.0-10.0) H 01/07/18: Eosinophils % 3.3 % (0.0-5.0) 01/07/18 21: Basophils % 0.9 % (0.0-2.0) 01/07/18 21: Sodium 138 mEq/L (136-145) 01/07/18 21:40 Potassium 3.9 mEq/L (3.5-5.1) 01/07/18: Chloride 105 mEq/L (98-107) 01/07/18 21: Carbon Dioxide 24.9 mEq/L (21.0-31.0) 01/07/18 21: Anion Gap 12.0 (7.0-16.0) 01/07/18 21:40 BUN 12 mg/dL (7-25) 01/07/18 21:40 Creatinine 0.7 mg/dL (0.6-1.2) 01/07/18 21:40 Est GFR ( Amer) > 60.0 ml/min (>90) 01/07/18 21:40 Est GFR (Non-Af Amer) > 60.0 ml/min 01/07/18 21:40 BUN/Creatinine Ratio 17.1 01/07/18 21:40 Glucose 88 mg/dL (70-105) 01/07/18 21:40 Calcium 8.4 mg/dL (8.6-10.3) L 01/07/18 21:40 Total Bilirubin 0.3 mg/dL (0.3-1.0) 01/07/18 21:40 AST 14 U/L (13-39) 01/07/18 21:40 ALT 20 U/L (7-52) 01/07/18 21:40 Alkaline Phosphatase 86 U/L (34-104) 01/07/18 21:40 Total Protein 5.6 gm/dL (6.0-8.3) L 01/07/18 21:40 Albumin 3.6 gm/dL (3.7-5.3) L 01/07/18 21:40 Globulin 2.0 gm/dL 01/07/18 21:40 Albumin/Globulin Ratio 1.8 (1.0-1.8) 01/07/18 21:40 Triglycerides 67 mg/dL (<150) 01/07/18 21:40 Cholesterol 167 mg/dL (<200) 01/07/18 21:40 LDL Cholesterol Direct 106 mg/dL (75-193) 01/07/18 21:40 HDL Cholesterol 51 mg/dL (23-92) 01/07/18 21:40 TSH 3.82 uIU/ml (0.34-5.60) 01/07/18 21:40 Salicylates < 25.0 mg/L (30.0-100.0) L 01/07/18 21:40 Acetaminophen < 10.0 ug/mL (10.0-30.0) L 01/07/18 21:40 Ethyl Alcohol < 10 mg/dL (0-10) 01/07/18 21:40 - Physical Exam Vitals and I&O: Vital Signs Temp 98.0 F 01/09/18 04:52 Pulse 70 01/09/18 09:15 Resp 20 01/09/18 04:52 BP 114/63 01/09/18 09:15 Pulse Ox 97 01/09/18 04:52 Intake & Output 01/08/18 01/09/18 01/09/18 18:59 06:59 18:59 Intake Total 480 Balance 480 Intake: Oral 480 Other: # Voids 3 2 # Bowel Movements 1 Active Medications: Current Medications Acetaminophen (Tylenol) 650 mg PO Q4H PRN PRN Reason: Mild Pain / Temp above 100 Stop: 03/09/18 06:42 Acetaminophen/Hydrocodone Bitart ([place] 5mg/325mg) 1 tab PO Q4H PRN PRN Reason: Pain (Severe) Stop: 03/09/18 06:42 Last Admin: 01/08/18 19:58 Dose: 1 tab Al Hydrox/Mg Hydrox/Simethicone (Maalox) 30 ml PO Q4H PRN PRN Reason: GI DISTRESS Stop: 03/09/18 06:42 Ascorbic Acid (Vitamin C) 500 mg PO DAILY [facility] Stop: 03/09/18 08:59 Last Admin: 01/09/18 09:16 Dose: 500 mg Bisacodyl (Dulcolax 10 Mg Supp) 10 mg RC DAILY PRN PRN Reason: Constipation Stop: 03/09/18 06:42 Docusate Sodium (Colace) 100 mg PO BID [facility] Stop: 03/09/18 08:59 Last Admin: 01/09/18 09:15 Dose: 100 mg Ferrous Sulfate (Iron) 325 mg PO BID [facility] Stop: 03/09/18 16:59 Last Admin: 01/09/18 09:17 Dose: 325 mg Fluoxetine HCl (Prozac) 10 mg PO DAILY [facility]; Protocol Stop: 03/09/18 08:59 Last Admin: 01/09/18 09:15 Dose: 10 mg Gabapentin (Neurontin) 300 mg PO TID [facility] Stop: 03/09/18 08:59 Last Admin: 01/09/18 09:16 Dose: 300 mg Ibuprofen (Motrin) 800 mg PO TID [facility] Stop: 03/09/18 08:59 Last Admin: 01/09/18 09:16 Dose: 800 mg Lactobacillus Rhamnosus (Culturelle 15b) 1 each PO DAILY [facility] Stop: 03/10/18 08:59 Last Admin: 01/09/18 09:16 Dose: 1 each Lorazepam (Ativan) 0.5 mg PO Q4HR PRN; Protocol PRN Reason: Anxiety/AGITATION Stop: 03/08/18 23:46 Magnesium Hydroxide (Milk Of Magnesia) 30 ml PO DAILY [facility] Stop: 03/09/18 08:59 Last Admin: 01/09/18 09:17 Dose: Not Given Multivitamins/Vitamin C (Theragran) 1 tab PO DAILY [facility] Stop: 03/09/18 08:59 Last Admin: 01/09/18 09:16 Dose: 1 tab Spironolactone (Aldactone) 25 mg PO DAILY [facility] Stop: 03/09/18 08:59 Last Admin: 01/09/18 09:15 Dose: 25 mg Trazodone HCl (Desyrel) 25 mg PO HS [facility]; Protocol Stop: 03/09/18 00:00 Last Admin: 01/08/18 21:31 Dose: 25 mg Zolpidem Tartrate (Ambien) 5 mg PO HS PRN PRN Reason: Insomnia Stop: 03/09/18 06:42 General: alert HEENT: NC/AT, PERRLA Neck: Supple Lungs: CTAB Cardiovascular: RRR, Normal S1, Normal S2, without murmur Abdomen: soft, non-tender, non-distended, positive bowel sound Extremities: excoriation Neurological: alert Internal Medicine Assmt/Plan - Assessment Assessment: depression anemia chronic pain syndrome - Plan Plan: fall precautions continue current meds from snf continue current plan of care
[2018-01-10] MEDS: Ferrous Sulfate 325 MG TAB PO SCH ×2 (09:07→17:23)
[2018-01-10] MEDS: Multivitamin Tab PO SCH (09:07)
[2018-01-10] MEDS: Magnesium Hydroxide (MOM) 30 mL UDC PO SCH (09:08)
[2018-01-10] MEDS: Lactobacillus Rhamnosus GG 15 Billion CFU CAP.SPRINK PO SCH (09:08)
--- NOTE | 2018-01-10 11:25 | Internal Medicine Prog Note ---
Internal Medicine Subjective - Subjective Service Date: 01/10/18 Patient is:: awake, verbal Per staff patient has:: tolerating meds Internal Medicine Objective - Results Result Diagrams: 01/07/18 21:01/07/18 21: Recent Labs: Laboratory Last Values WBC 7.5 Th/cmm (4.8-10.8) 01/07/18: RBC 3.96 Mil/cmm (3.80-5.20) 01/07/18: Hgb 12.1 gm/dL (12-16) 01/07/18: Hct 37.1 % (41.0-60) L 01/07/18: MCV 93.5 fl (81-100) 01/07/18: MCH 30.5 pg (27.0-31.0) 01/07/18: MCHC Differential 32.6 pg (28.0-36.0) 01/07/18: RDW 19.4 % (11.5-20.0) 01/07/18: Plt Count 325 Th/cmm (150-400) 01/07/18 21: MPV 7.4 fl 01/07/18 21: Neutrophils % 59.6 % (40.0-80.0) 01/07/18: Lymphocytes % 25.6 % (20.0-50.0) 01/07/18: Monocytes % 10.6 % (2.0-10.0) H 01/07/18: Eosinophils % 3.3 % (0.0-5.0) 01/07/18: Basophils % 0.9 % (0.0-2.0) 01/07/18 21: Sodium 138 mEq/L (136-145) 01/07/18 21: Potassium 3.9 mEq/L (3.5-5.1) 01/07/18: Chloride 105 mEq/L (98-107) 01/07/18 21: Carbon Dioxide 24.9 mEq/L (21.0-31.0) 01/07/18 21: Anion Gap 12.0 (7.0-16.0) 01/07/18 21: BUN 12 mg/dL (7-25) 01/07/18 21:40 Creatinine 0.7 mg/dL (0.6-1.2) 01/07/18 21:40 Est GFR ( Amer) > 60.0 ml/min (>90) 01/07/18 21:40 Est GFR (Non-Af Amer) > 60.0 ml/min 01/07/18 21:40 BUN/Creatinine Ratio 17.1 01/07/18 21:40 Glucose 88 mg/dL (70-105) 01/07/18 21:40 Calcium 8.4 mg/dL (8.6-10.3) L 01/07/18 21:40 Total Bilirubin 0.3 mg/dL (0.3-1.0) 01/07/18 21:40 AST 14 U/L (13-39) 01/07/18 21:40 ALT 20 U/L (7-52) 01/07/18 21:40 Alkaline Phosphatase 86 U/L (34-104) 01/07/18 21:40 Total Protein 5.6 gm/dL (6.0-8.3) L 01/07/18 21:40 Albumin 3.6 gm/dL (3.7-5.3) L 01/07/18 21:40 Globulin 2.0 gm/dL 01/07/18 21:40 Albumin/Globulin Ratio 1.8 (1.0-1.8) 01/07/18 21:40 Triglycerides 67 mg/dL (<150) 01/07/18 21:40 Cholesterol 167 mg/dL (<200) 01/07/18 21:40 LDL Cholesterol Direct 106 mg/dL (75-193) 01/07/18 21:40 HDL Cholesterol 51 mg/dL (23-92) 01/07/18 21:40 TSH 3.82 uIU/ml (0.34-5.60) 01/07/18 21:40 Salicylates < 25.0 mg/L (30.0-100.0) L 01/07/18 21:40 Acetaminophen < 10.0 ug/mL (10.0-30.0) L 01/07/18 21:40 Ethyl Alcohol < 10 mg/dL (0-10) 01/07/18 21:40 - Physical Exam Vitals and I&O: Vital Signs Temp 97.8 F 01/10/18 05:41 Pulse 95 01/10/18 09:07 Resp 18 01/10/18 10:52 BP 106/73 01/10/18 09:07 Pulse Ox 95 01/10/18 05:41 Intake & Output 01/09/18 01/10/18 01/10/18 18:59 06:59 18:59 Intake Total 240 120 Balance 240 120 Intake: Oral 240 120 Other: # Voids 2 3 # Bowel Movements 0 Active Medications: Current Medications Acetaminophen (Tylenol) 650 mg PO Q4H PRN PRN Reason: Mild Pain / Temp above 100 Stop: 03/09/18 06:42 Acetaminophen/Hydrocodone Bitart ([place] 5mg/325mg) 1 tab PO Q4H PRN PRN Reason: Pain (Severe) Stop: 03/09/18 06:42 Last Admin: 01/08/18 19:58 Dose: 1 tab Al Hydrox/Mg Hydrox/Simethicone (Maalox) 30 ml PO Q4H PRN PRN Reason: GI DISTRESS Stop: 03/09/18 06:42 Ascorbic Acid (Vitamin C) 500 mg PO DAILY [facility] Stop: 03/09/18 08:59 Last Admin: 01/10/18 09:07 Dose: 500 mg Bisacodyl (Dulcolax 10 Mg Supp) 10 mg RC DAILY PRN PRN Reason: Constipation Stop: 03/09/18 06:42 Docusate Sodium (Colace) 100 mg PO BID [facility] Stop: 03/09/18 08:59 Last Admin: 01/10/18 09:07 Dose: 100 mg Ferrous Sulfate (Iron) 325 mg PO BID [facility] Stop: 03/09/18 16:59 Last Admin: 01/10/18 09:07 Dose: 325 mg Fluoxetine HCl (Prozac) 10 mg PO DAILY [facility]; Protocol Stop: 03/09/18 08:59 Last Admin: 01/10/18 09:06 Dose: 10 mg Gabapentin (Neurontin) 300 mg PO TID [facility] Stop: 03/09/18 08:59 Last Admin: 01/10/18 09:07 Dose: 300 mg Ibuprofen (Motrin) 800 mg PO TID [facility] Stop: 03/09/18 08:59 Last Admin: 01/10/18 09:06 Dose: 800 mg Lactobacillus Rhamnosus (Culturelle 15b) 1 each PO DAILY [facility] Stop: 03/10/18 08:59 Last Admin: 01/10/18 09:08 Dose: 1 each Lorazepam (Ativan) 0.5 mg PO Q4HR PRN; Protocol PRN Reason: Anxiety/AGITATION Stop: 03/08/18 23:46 Last Admin: 01/09/18 13:35 Dose: 0.5 mg Magnesium Hydroxide (Milk Of Magnesia) 30 ml PO DAILY [facility] Stop: 03/09/18 08:59 Last Admin: 01/10/18 09:08 Dose: Not Given Multivitamins/Vitamin C (Theragran) 1 tab PO DAILY [facility] Stop: 03/09/18 08:59 Last Admin: 01/10/18 09:07 Dose: 1 tab Spironolactone (Aldactone) 25 mg PO DAILY [facility] Stop: 03/09/18 08:59 Last Admin: 01/10/18 09:07 Dose: 25 mg Trazodone HCl (Desyrel) 25 mg PO HS [facility]; Protocol Stop: 03/09/18 00:00 Last Admin: 01/09/18 21:45 Dose: 25 mg Zolpidem Tartrate (Ambien) 5 mg PO HS PRN PRN Reason: Insomnia Stop: 03/09/18 06:42 General: alert HEENT: NC/AT, PERRLA Neck: Supple Lungs: CTAB Cardiovascular: RRR, Normal S1, Normal S2, without murmur Abdomen: soft, non-tender, non-distended, positive bowel sound Extremities: excoriation Neurological: alert Internal Medicine Assmt/Plan - Assessment Assessment: depression anemia chronic pain syndrome - Plan Plan: fall precautions continue current meds from snf continue current plan of care
--- NOTE | 2018-01-10 11:36 | Progress Notes ---
DATE: 01/10/2018 SUBJECTIVE: Staff was spoken to. The patient is interviewed. Mood is noted to be depressed. Affect is constricted. The patient is isolative and withdrawn. Insight and judgment are noted to be still impaired. Impulse control is noted to be limited. The patient is not able to contract for safety. The patient has been having difficult time to cope with the stress. The patient is currently on the Prozac and has been able to tolerate the medications. No side effects to the medications are noted. ASSESSMENT: The patient is still depressed. PLAN: To continue the patient with the supportive therapy and followup. JOB# [id number]
--- NOTE | 2018-01-10 13:21 | Consultation ---
DATE OF CONSULTATION: 01/09/2018 REFERRING PHYSICIAN: Rosa Maria Markham MD TYPE OF CONSULTATION: Psychology. HISTORY OF PRESENT ILLNESS: The patient is a 67-year-old female. The patient is a resident of [facility]. The following is by record review and by the patient's self-report. The patient is being admitted due to increased depression. Upon interview, the patient states that she is depressed and not feeling well. The staff at the patient's facility report poor appetite and poor sleep and a history of bipolar disorder. Apparently, the patient has been telling the staff that she has been feeling more depressed all of a sudden. The patient denied any suicidal ideation, plan or intention at the time of this clinical interview. PAST MEDICAL HISTORY: Please see history and physical by Dr. Ramirez. PAST PSYCHIATRIC HISTORY: Records are unavailable. Details are unknown. The patient has psychiatry service at her placement. SUBSTANCE ABUSE HISTORY: The patient denied any history of alcohol, tobacco or illicit drug use. PSYCHOSOCIAL HISTORY: The patient declined to answer questions about occupational or educational history or hoahaoism affiliation. The patient denied any history of physical or sexual abuse. The patient denies any current legal problems. The patient wishes to return to her placement. The patient did not state whether she has a support system or any family relationships or involvement. MENTAL STATUS EXAMINATION: The patient appears to be her stated age. The patient's attitude is superficially cooperative. Eye contact is poor. Speech is slow and delayed. Mood is irritable. Affect is constricted. Thought process shows to be depressogenic. The patient admitted to having passive suicidal ideation, but no plan or intention. The patient denied any auditory or visual hallucinations or any paranoid ideation or other delusions. The patient's behavior has been redirectable on the unit. Impulse control is limited. Concentration is fair to poor. Sensorium is alert and oriented to self and place. The patient did not participate in the memory assessment. The patient has been getting easily frustrated. The patient did not participate in the interpretation of proverbs. Insight is poor. Judgment is compromised. DIAGNOSTIC IMPRESSION: AXIS I: History of bipolar disorder, depressed. AXIS II: Deferred. AXIS III: Per Dr. Ramirez. TREATMENT PLAN: The patient has been seen by Dr. Markham for psychiatric evaluation and for the management of the patient's psychotropic medications. We will provide supportive psychotherapy to include reality orientation, differentiation and integration. We will provide daily opportunities for the patient to verbally contract for safety and no self-harm. We will encourage the patient to verbalize her concerns, especially if she is experiencing any suicidal thoughts. We will provide cognitive behavioral therapy to assist the patient in managing her mood fluctuations. We will encourage the patient to be able to demonstrate emotional and self-regulation prior to her discharge. We will include coping strategies for phase of life issues as well as for chronic long-term severe mental illness. Thank you, Dr. Markham for this consult and the opportunity to participate in this patient's care. JOB# [id number] DANDRE
[2018-01-11] MEDS: Magnesium Hydroxide (MOM) 30 mL UDC PO SCH (09:08)
[2018-01-11] MEDS: Lactobacillus Rhamnosus GG 15 Billion CFU CAP.SPRINK PO SCH (09:10)
[2018-01-11] MEDS: Ferrous Sulfate 325 MG TAB PO SCH ×2 (09:10→17:54)
[2018-01-11] MEDS: Multivitamin Tab PO SCH (09:10)
--- NOTE | 2018-01-11 12:12 | Internal Medicine Prog Note ---
Internal Medicine Subjective - Subjective Service Date: 01/11/18 Patient is:: awake, verbal Per staff patient has:: tolerating meds Internal Medicine Objective - Results Result Diagrams: 01/07/18 21:01/07/18 21: Recent Labs: Laboratory Last Values WBC 7.5 Th/cmm (4.8-10.8) 01/07/18: RBC 3.96 Mil/cmm (3.80-5.20) 01/07/18: Hgb 12.1 gm/dL (12-16) 01/07/18: Hct 37.1 % (41.0-60) L 01/07/18: MCV 93.5 fl (81-100) 01/07/18: MCH 30.5 pg (27.0-31.0) 01/07/18: MCHC Differential 32.6 pg (28.0-36.0) 01/07/18: RDW 19.4 % (11.5-20.0) 01/07/18: Plt Count 325 Th/cmm (150-400) 01/07/18 21: MPV 7.4 fl 01/07/18 21: Neutrophils % 59.6 % (40.0-80.0) 01/07/18: Lymphocytes % 25.6 % (20.0-50.0) 01/07/18: Monocytes % 10.6 % (2.0-10.0) H 01/07/18: Eosinophils % 3.3 % (0.0-5.0) 01/07/18: Basophils % 0.9 % (0.0-2.0) 01/07/18 21: Sodium 138 mEq/L (136-145) 01/07/18 21: Potassium 3.9 mEq/L (3.5-5.1) 01/07/18: Chloride 105 mEq/L (98-107) 01/07/18 21: Carbon Dioxide 24.9 mEq/L (21.0-31.0) 01/07/18 21: Anion Gap 12.0 (7.0-16.0) 01/07/18 21: BUN 12 mg/dL (7-25) 01/07/18 21:40 Creatinine 0.7 mg/dL (0.6-1.2) 01/07/18 21:40 Est GFR ( Amer) > 60.0 ml/min (>90) 01/07/18 21:40 Est GFR (Non-Af Amer) > 60.0 ml/min 01/07/18 21:40 BUN/Creatinine Ratio 17.1 01/07/18 21:40 Glucose 88 mg/dL (70-105) 01/07/18 21:40 Calcium 8.4 mg/dL (8.6-10.3) L 01/07/18 21:40 Total Bilirubin 0.3 mg/dL (0.3-1.0) 01/07/18 21:40 AST 14 U/L (13-39) 01/07/18 21:40 ALT 20 U/L (7-52) 01/07/18 21:40 Alkaline Phosphatase 86 U/L (34-104) 01/07/18 21:40 Total Protein 5.6 gm/dL (6.0-8.3) L 01/07/18 21:40 Albumin 3.6 gm/dL (3.7-5.3) L 01/07/18 21:40 Globulin 2.0 gm/dL 01/07/18 21:40 Albumin/Globulin Ratio 1.8 (1.0-1.8) 01/07/18 21:40 Triglycerides 67 mg/dL (<150) 01/07/18 21:40 Cholesterol 167 mg/dL (<200) 01/07/18 21:40 LDL Cholesterol Direct 106 mg/dL (75-193) 01/07/18 21:40 HDL Cholesterol 51 mg/dL (23-92) 01/07/18 21:40 TSH 3.82 uIU/ml (0.34-5.60) 01/07/18 21:40 Salicylates < 25.0 mg/L (30.0-100.0) L 01/07/18 21:40 Acetaminophen < 10.0 ug/mL (10.0-30.0) L 01/07/18 21:40 Ethyl Alcohol < 10 mg/dL (0-10) 01/07/18 21:40 - Physical Exam Vitals and I&O: Vital Signs Temp 97.8 F 01/11/18 05:53 Pulse 70 01/11/18 09:10 Resp 19 01/11/18 05:53 BP 112/88 01/11/18 09:10 Pulse Ox 97 01/11/18 05:53 Intake & Output 01/10/18 01/11/18 01/11/18 18:59 06:59 18:59 Intake Total 1500 480 Balance 1500 480 Intake: Oral 1500 480 Other: # Voids 3 1 # Bowel Movements 1 Active Medications: Current Medications Acetaminophen (Tylenol) 650 mg PO Q4H PRN PRN Reason: Mild Pain / Temp above 100 Stop: 03/09/18 06:42 Acetaminophen/Hydrocodone Bitart ([place] 5mg/325mg) 1 tab PO Q4H PRN PRN Reason: Pain (Severe) Stop: 03/09/18 06:42 Last Admin: 01/08/18 19:58 Dose: 1 tab Al Hydrox/Mg Hydrox/Simethicone (Maalox) 30 ml PO Q4H PRN PRN Reason: GI DISTRESS Stop: 03/09/18 06:42 Ascorbic Acid (Vitamin C) 500 mg PO DAILY [facility] Stop: 03/09/18 08:59 Last Admin: 01/11/18 09:10 Dose: 500 mg Bisacodyl (Dulcolax 10 Mg Supp) 10 mg RC DAILY PRN PRN Reason: Constipation Stop: 03/09/18 06:42 Docusate Sodium (Colace) 100 mg PO BID [facility] Stop: 03/09/18 08:59 Last Admin: 01/11/18 09:10 Dose: 100 mg Ferrous Sulfate (Iron) 325 mg PO BID [facility] Stop: 03/09/18 16:59 Last Admin: 01/11/18 09:10 Dose: 325 mg Fluoxetine HCl (Prozac) 10 mg PO DAILY [facility]; Protocol Stop: 03/09/18 08:59 Last Admin: 01/11/18 09:10 Dose: 10 mg Gabapentin (Neurontin) 300 mg PO TID [facility] Stop: 03/09/18 08:59 Last Admin: 01/11/18 09:10 Dose: 300 mg Ibuprofen (Motrin) 800 mg PO TID [facility] Stop: 03/09/18 08:59 Last Admin: 01/11/18 09:11 Dose: 800 mg Lactobacillus Rhamnosus (Culturelle 15b) 1 each PO DAILY [facility] Stop: 03/10/18 08:59 Last Admin: 01/11/18 09:10 Dose: 1 each Lorazepam (Ativan) 0.5 mg PO Q4HR PRN; Protocol PRN Reason: Anxiety/AGITATION Stop: 03/08/18 23:46 Last Admin: 01/09/18 13:35 Dose: 0.5 mg Magnesium Hydroxide (Milk Of Magnesia) 30 ml PO DAILY [facility] Stop: 03/09/18 08:59 Last Admin: 01/11/18 09:08 Dose: 30 ml Multivitamins/Vitamin C (Theragran) 1 tab PO DAILY [facility] Stop: 03/09/18 08:59 Last Admin: 01/11/18 09:10 Dose: 1 tab Spironolactone (Aldactone) 25 mg PO DAILY [facility] Stop: 03/09/18 08:59 Last Admin: 01/11/18 09:10 Dose: 25 mg Trazodone HCl (Desyrel) 25 mg PO HS [facility]; Protocol Stop: 03/09/18 00:00 Last Admin: 01/10/18 20:29 Dose: 25 mg Zolpidem Tartrate (Ambien) 5 mg PO HS PRN PRN Reason: Insomnia Stop: 03/09/18 06:42 Last Admin: 01/10/18 20:29 Dose: 5 mg General: alert HEENT: NC/AT, PERRLA Neck: Supple Lungs: CTAB Cardiovascular: RRR, Normal S1, Normal S2, without murmur Abdomen: soft, non-tender, non-distended, positive bowel sound Extremities: excoriation Neurological: alert Internal Medicine Assmt/Plan - Assessment Assessment: depression anemia chronic pain syndrome - Plan Plan: fall precautions continue current meds from snf continue current plan of care Nutritional Asmnt/Malnutr-PDOC - Dietary Evaluation Malnutrition Findings (Please click <Entered> for more info): Nutritional Asmnt/Malnutrition Start: 01/10/18 14: 12 Text: Status: Complete Freq: Protocol: Document 01/10/18 14:12 LIDIA (Rec: 01/10/18 14:16 [email or web address]) Nutritional Asmnt/Malnutrition Patient General Information Nutritional Screening Moderate Risk Diagnosis psychosis Pertinent Medical Hx/Surgical Hx sleep disorder, depression, anxiety Subjective Information Pt seen sitting on wheelchair in dining room, watching TV, alert and pleasant. Pt stated food has been very good, no food preference. Per EMR, PO intake 100%, meeting 100% of nutritional needs. Current Diet Order/ Nutrition Support [facility] soft chopped Pertinent Medications vit C, colace, iron, culturelle, theragran Pertinent Labs 01/07 Ca 8.4, glucose 88, Alb 3.6 Nutritional Hx/Data Height 5 ft 4 in Height (Calculated Centimeters) 162.6 Current Weight (lbs) 125 lb Weight (Calculated Kilograms) 56.7 Weight (Calculated Grams) 17946.0 [place] Body Weight 120 Body Mass Index (BMI) 21.4 Weight Status Approriate GI Symptoms GI Symptoms None Last BM 01/08 Difficult in: None Skin Integrity/Comment: intact Current %PO Good (75-100%) Estimated Nutritional Goals BEE in Kcals: Using Current wt Calories/Kcals/Kg 25-30 Kcals Calculated 1911-9250 Protein: Using Current wt Protein g/k Protein Calculated 67 Fluid: ml 1675-2010ml (1ml/lkcal) Nutritional Problem No current Nutrition Prob Problem N/A Intervention/Recommendation Comments 1. Continue with current diet as ordered. 2. Monitor PO intake, wt, labs and skin integrity 3. F/U as low risk in 7 days, 01/17 Expected Outcomes/Goals Expected Outcomes/Goals 1. PO intake to meet at least 75% of nutritional needs. 2. Wt stability, skin to remain intact, labs to approach WNL.
--- NOTE | 2018-01-12 03:16 | Progress Notes ---
DATE: 01/11/2018 SUBJECTIVE: Staff was spoken to. The patient is interviewed. Mood is noted to be depressed. Affect is constricted. The patient is isolative and withdrawn. Insight and judgment at this time are noted to be still impaired. Impulse control is noted to be limited. No side effects to the medications are noted. The patient is currently on Prozac and is able to tolerate the medication and plan to closely monitor the patient. I encouraged the patient to verbalize the concerns rather than to act out. JOB# [id number]
[2018-01-12] MEDS: Magnesium Hydroxide (MOM) 30 mL UDC PO SCH (09:35)
[2018-01-12] MEDS: Multivitamin Tab PO SCH (09:35)
[2018-01-12] MEDS: Ferrous Sulfate 325 MG TAB PO SCH ×2 (09:35→17:09)
[2018-01-12] MEDS: Lactobacillus Rhamnosus GG 15 Billion CFU CAP.SPRINK PO SCH (09:35)
--- NOTE | 2018-01-12 12:37 | Internal Medicine Prog Note ---
Internal Medicine Subjective - Subjective Service Date: 01/12/18 Patient is:: awake, verbal Per staff patient has:: tolerating meds Internal Medicine Objective - Results Result Diagrams: 01/07/18 21:01/07/18 21: Recent Labs: Laboratory Last Values WBC 7.5 Th/cmm (4.8-10.8) 01/07/18: RBC 3.96 Mil/cmm (3.80-5.20) 01/07/18: Hgb 12.1 gm/dL (12-16) 01/07/18: Hct 37.1 % (41.0-60) L 01/07/18: MCV 93.5 fl (81-100) 01/07/18: MCH 30.5 pg (27.0-31.0) 01/07/18: MCHC Differential 32.6 pg (28.0-36.0) 01/07/18: RDW 19.4 % (11.5-20.0) 01/07/18: Plt Count 325 Th/cmm (150-400) 01/07/18 21: MPV 7.4 fl 01/07/18 21: Neutrophils % 59.6 % (40.0-80.0) 01/07/18: Lymphocytes % 25.6 % (20.0-50.0) 01/07/18: Monocytes % 10.6 % (2.0-10.0) H 01/07/18: Eosinophils % 3.3 % (0.0-5.0) 01/07/18: Basophils % 0.9 % (0.0-2.0) 01/07/18 21: Sodium 138 mEq/L (136-145) 01/07/18 21: Potassium 3.9 mEq/L (3.5-5.1) 01/07/18: Chloride 105 mEq/L (98-107) 01/07/18 21: Carbon Dioxide 24.9 mEq/L (21.0-31.0) 01/07/18 21: Anion Gap 12.0 (7.0-16.0) 01/07/18 21: BUN 12 mg/dL (7-25) 01/07/18 21:40 Creatinine 0.7 mg/dL (0.6-1.2) 01/07/18 21:40 Est GFR ( Amer) > 60.0 ml/min (>90) 01/07/18 21:40 Est GFR (Non-Af Amer) > 60.0 ml/min 01/07/18 21:40 BUN/Creatinine Ratio 17.1 01/07/18 21:40 Glucose 88 mg/dL (70-105) 01/07/18 21:40 Calcium 8.4 mg/dL (8.6-10.3) L 01/07/18 21:40 Total Bilirubin 0.3 mg/dL (0.3-1.0) 01/07/18 21:40 AST 14 U/L (13-39) 01/07/18 21:40 ALT 20 U/L (7-52) 01/07/18 21:40 Alkaline Phosphatase 86 U/L (34-104) 01/07/18 21:40 Total Protein 5.6 gm/dL (6.0-8.3) L 01/07/18 21:40 Albumin 3.6 gm/dL (3.7-5.3) L 01/07/18 21:40 Globulin 2.0 gm/dL 01/07/18 21:40 Albumin/Globulin Ratio 1.8 (1.0-1.8) 01/07/18 21:40 Triglycerides 67 mg/dL (<150) 01/07/18 21:40 Cholesterol 167 mg/dL (<200) 01/07/18 21:40 LDL Cholesterol Direct 106 mg/dL (75-193) 01/07/18 21:40 HDL Cholesterol 51 mg/dL (23-92) 01/07/18 21:40 TSH 3.82 uIU/ml (0.34-5.60) 01/07/18 21:40 Salicylates < 25.0 mg/L (30.0-100.0) L 01/07/18 21:40 Acetaminophen < 10.0 ug/mL (10.0-30.0) L 01/07/18 21:40 Ethyl Alcohol < 10 mg/dL (0-10) 01/07/18 21:40 RPR NONREACTIVE (NONREACTIVE) 01/07/18 21:40 - Physical Exam Vitals and I&O: Vital Signs Temp 96.7 F 01/11/18 20:00 Pulse 77 01/12/18 09:36 Resp 18 01/12/18 06:24 BP 107/56 01/12/18 09:36 Pulse Ox 98 01/12/18 06:24 Intake & Output 01/11/18 01/12/18 01/12/18 18:59 06:59 18:59 Intake Total 1000 Balance 1000 Intake: Oral 1000 Other: # Voids 3 # Bowel Movements 0 Active Medications: Current Medications Acetaminophen (Tylenol) 650 mg PO Q4H PRN PRN Reason: Mild Pain / Temp above 100 Stop: 03/09/18 06:42 Acetaminophen/Hydrocodone Bitart ([place] 5mg/325mg) 1 tab PO Q4H PRN PRN Reason: Pain (Severe) Stop: 03/09/18 06:42 Last Admin: 01/08/18 19:58 Dose: 1 tab Al Hydrox/Mg Hydrox/Simethicone (Maalox) 30 ml PO Q4H PRN PRN Reason: GI DISTRESS Stop: 03/09/18 06:42 Ascorbic Acid (Vitamin C) 500 mg PO DAILY [facility] Stop: 03/09/18 08:59 Last Admin: 01/12/18 09:35 Dose: 500 mg Bisacodyl (Dulcolax 10 Mg Supp) 10 mg RC DAILY PRN PRN Reason: Constipation Stop: 03/09/18 06:42 Docusate Sodium (Colace) 100 mg PO BID [facility] Stop: 03/09/18 08:59 Last Admin: 01/12/18 09:36 Dose: 100 mg Ferrous Sulfate (Iron) 325 mg PO BID [facility] Stop: 03/09/18 16:59 Last Admin: 01/12/18 09:35 Dose: 325 mg Fluoxetine HCl (Prozac) 10 mg PO DAILY [facility]; Protocol Stop: 03/09/18 08:59 Last Admin: 01/12/18 09:35 Dose: 10 mg Gabapentin (Neurontin) 300 mg PO TID [facility] Stop: 03/09/18 08:59 Last Admin: 01/12/18 09:36 Dose: 300 mg Ibuprofen (Motrin) 800 mg PO TID [facility] Stop: 03/09/18 08:59 Last Admin: 01/12/18 09:36 Dose: 800 mg Lactobacillus Rhamnosus (Culturelle 15b) 1 each PO DAILY [facility] Stop: 03/10/18 08:59 Last Admin: 01/12/18 09:35 Dose: 1 each Lorazepam (Ativan) 0.5 mg PO Q4HR PRN; Protocol PRN Reason: Anxiety/AGITATION Stop: 03/08/18 23:46 Last Admin: 01/09/18 13:35 Dose: 0.5 mg Magnesium Hydroxide (Milk Of Magnesia) 30 ml PO DAILY [facility] Stop: 03/09/18 08:59 Last Admin: 01/12/18 09:35 Dose: 30 ml Multivitamins/Vitamin C (Theragran) 1 tab PO DAILY [facility] Stop: 03/09/18 08:59 Last Admin: 01/12/18 09:35 Dose: 1 tab Spironolactone (Aldactone) 25 mg PO DAILY [facility] Stop: 03/09/18 08:59 Last Admin: 01/12/18 09:36 Dose: 25 mg Trazodone HCl (Desyrel) 25 mg PO HS [facility]; Protocol Stop: 03/09/18 00:00 Last Admin: 01/11/18 20:40 Dose: 25 mg Zolpidem Tartrate (Ambien) 5 mg PO HS PRN PRN Reason: Insomnia Stop: 03/09/18 06:42 Last Admin: 01/11/18 20:40 Dose: 5 mg General: alert HEENT: NC/AT, PERRLA Neck: Supple Lungs: CTAB Cardiovascular: RRR, Normal S1, Normal S2, without murmur Abdomen: soft, non-tender, non-distended, positive bowel sound Extremities: excoriation Neurological: alert Internal Medicine Assmt/Plan - Assessment Assessment: depression anemia chronic pain syndrome - Plan Plan: fall precautions continue current meds from snf continue current plan of care Nutritional Asmnt/Malnutr-PDOC - Dietary Evaluation Malnutrition Findings (Please click <Entered> for more info): Nutritional Asmnt/Malnutrition Start: 01/10/18 14: 12 Text: Status: Complete Freq: Protocol: Document 01/10/18 14:12 LIDIA (Rec: 01/10/18 14:16 [email or web address]) Nutritional Asmnt/Malnutrition Patient General Information Nutritional Screening Moderate Risk Diagnosis psychosis Pertinent Medical Hx/Surgical Hx sleep disorder, depression, anxiety Subjective Information Pt seen sitting on wheelchair in dining room, watching TV, alert and pleasant. Pt stated food has been very good, no food preference. Per EMR, PO intake 100%, meeting 100% of nutritional needs. Current Diet Order/ Nutrition Support [facility] soft chopped Pertinent Medications vit C, colace, iron, culturelle, theragran Pertinent Labs 01/07 Ca 8.4, glucose 88, Alb 3.6 Nutritional Hx/Data Height 5 ft 4 in Height (Calculated Centimeters) 162.6 Current Weight (lbs) 125 lb Weight (Calculated Kilograms) 56.7 Weight (Calculated Grams) 00673.0 [place] Body Weight 120 Body Mass Index (BMI) 21.4 Weight Status Approriate GI Symptoms GI Symptoms None Last BM 01/08 Difficult in: None Skin Integrity/Comment: intact Current %PO Good (75-100%) Estimated Nutritional Goals BEE in Kcals: Using Current wt Calories/Kcals/Kg 25-30 Kcals Calculated 7944-3390 Protein: Using Current wt Protein g/k Protein Calculated 67 Fluid: ml 1675-2010ml (1ml/lkcal) Nutritional Problem No current Nutrition Prob Problem N/A Intervention/Recommendation Comments 1. Continue with current diet as ordered. 2. Monitor PO intake, wt, labs and skin integrity 3. F/U as low risk in 7 days, 01/17 Expected Outcomes/Goals Expected Outcomes/Goals 1. PO intake to meet at least 75% of nutritional needs. 2. Wt stability, skin to remain intact, labs to approach WNL.
--- NOTE | 2018-01-12 14:11 | Progress Notes ---
DATE: 01/12/2018 SUBJECTIVE: Staff was spoken to. The patient is interviewed. Mood is noted to be depressed. Affect is constricted. The patient is isolative and withdrawn. Insight and judgment noted to be still impaired. Impulse control is noted to be limited. Coping skills are noted to be limited. ASSESSMENT: The patient is still depressed. PLAN: To continue the patient with the supportive therapy and followup. [facility]# [id number]
[2018-01-13] MEDS: Multivitamin Tab PO SCH (08:43)
[2018-01-13] MEDS: Lactobacillus Rhamnosus GG 15 Billion CFU CAP.SPRINK PO SCH (08:43)
[2018-01-13] MEDS: Ferrous Sulfate 325 MG TAB PO SCH ×2 (08:44→16:25)
[2018-01-13] MEDS: Magnesium Hydroxide (MOM) 30 mL UDC PO SCH (08:44)
--- NOTE | 2018-01-13 14:57 | Internal Medicine Prog Note ---
Internal Medicine Subjective - Subjective Service Date: 01/13/18 Patient is:: awake, verbal Per staff patient has:: tolerating meds Internal Medicine Objective - Results Result Diagrams: 01/07/18 21:01/07/18 21: Recent Labs: Laboratory Last Values WBC 7.5 Th/cmm (4.8-10.8) 01/07/18: RBC 3.96 Mil/cmm (3.80-5.20) 01/07/18: Hgb 12.1 gm/dL (12-16) 01/07/18: Hct 37.1 % (41.0-60) L 01/07/18: MCV 93.5 fl (81-100) 01/07/18: MCH 30.5 pg (27.0-31.0) 01/07/18: MCHC Differential 32.6 pg (28.0-36.0) 01/07/18: RDW 19.4 % (11.5-20.0) 01/07/18: Plt Count 325 Th/cmm (150-400) 01/07/18 21: MPV 7.4 fl 01/07/18 21: Neutrophils % 59.6 % (40.0-80.0) 01/07/18: Lymphocytes % 25.6 % (20.0-50.0) 01/07/18: Monocytes % 10.6 % (2.0-10.0) H 01/07/18: Eosinophils % 3.3 % (0.0-5.0) 01/07/18: Basophils % 0.9 % (0.0-2.0) 01/07/18 21: Sodium 138 mEq/L (136-145) 01/07/18 21: Potassium 3.9 mEq/L (3.5-5.1) 01/07/18: Chloride 105 mEq/L (98-107) 01/07/18 21: Carbon Dioxide 24.9 mEq/L (21.0-31.0) 01/07/18 21: Anion Gap 12.0 (7.0-16.0) 01/07/18 21: BUN 12 mg/dL (7-25) 01/07/18 21:40 Creatinine 0.7 mg/dL (0.6-1.2) 01/07/18 21:40 Est GFR ( Amer) > 60.0 ml/min (>90) 01/07/18 21:40 Est GFR (Non-Af Amer) > 60.0 ml/min 01/07/18 21:40 BUN/Creatinine Ratio 17.1 01/07/18 21:40 Glucose 88 mg/dL (70-105) 01/07/18 21:40 Calcium 8.4 mg/dL (8.6-10.3) L 01/07/18 21:40 Total Bilirubin 0.3 mg/dL (0.3-1.0) 01/07/18 21:40 AST 14 U/L (13-39) 01/07/18 21:40 ALT 20 U/L (7-52) 01/07/18 21:40 Alkaline Phosphatase 86 U/L (34-104) 01/07/18 21:40 Total Protein 5.6 gm/dL (6.0-8.3) L 01/07/18 21:40 Albumin 3.6 gm/dL (3.7-5.3) L 01/07/18 21:40 Globulin 2.0 gm/dL 01/07/18 21:40 Albumin/Globulin Ratio 1.8 (1.0-1.8) 01/07/18 21:40 Triglycerides 67 mg/dL (<150) 01/07/18 21:40 Cholesterol 167 mg/dL (<200) 01/07/18 21:40 LDL Cholesterol Direct 106 mg/dL (75-193) 01/07/18 21:40 HDL Cholesterol 51 mg/dL (23-92) 01/07/18 21:40 TSH 3.82 uIU/ml (0.34-5.60) 01/07/18 21:40 Salicylates < 25.0 mg/L (30.0-100.0) L 01/07/18 21:40 Acetaminophen < 10.0 ug/mL (10.0-30.0) L 01/07/18 21:40 Ethyl Alcohol < 10 mg/dL (0-10) 01/07/18 21:40 RPR NONREACTIVE (NONREACTIVE) 01/07/18 21:40 - Physical Exam Vitals and I&O: Vital Signs Temp 97.8 F 01/13/18 14:20 Pulse 69 01/13/18 14:20 Resp 20 01/13/18 14:20 BP 121/78 01/13/18 14:20 Pulse Ox 95 01/13/18 14:20 Intake & Output 01/12/18 01/13/18 01/13/18 19:59 06:59 18:59 Intake Total Balance Intake: Oral Other: # Voids # Bowel Movements Stool Characteristics Soft Brown Active Medications: Current Medications Acetaminophen (Tylenol) 650 mg PO Q4H PRN PRN Reason: Mild Pain / Temp above 100 Stop: 03/09/18 06:42 Acetaminophen/Hydrocodone Bitart ([place] 5mg/325mg) 1 tab PO Q4H PRN PRN Reason: Pain (Severe) Stop: 03/09/18 06:42 Last Admin: 01/08/18 19:58 Dose: 1 tab Al Hydrox/Mg Hydrox/Simethicone (Maalox) 30 ml PO Q4H PRN PRN Reason: GI DISTRESS Stop: 03/09/18 06:42 Ascorbic Acid (Vitamin C) 500 mg PO DAILY [facility] Stop: 03/09/18 08:59 Last Admin: 01/13/18 08:44 Dose: 500 mg Bisacodyl (Dulcolax 10 Mg Supp) 10 mg RC DAILY PRN PRN Reason: Constipation Stop: 03/09/18 06:42 Docusate Sodium (Colace) 100 mg PO BID [facility] Stop: 03/09/18 08:59 Last Admin: 01/13/18 08:43 Dose: 100 mg Ferrous Sulfate (Iron) 325 mg PO BID [facility] Stop: 03/09/18 16:59 Last Admin: 01/13/18 08:44 Dose: 325 mg Fluoxetine HCl (Prozac) 10 mg PO DAILY [facility]; Protocol Stop: 03/09/18 08:59 Last Admin: 01/13/18 08:43 Dose: 10 mg Gabapentin (Neurontin) 300 mg PO TID [facility] Stop: 03/09/18 08:59 Last Admin: 01/13/18 13:36 Dose: 300 mg Ibuprofen (Motrin) 800 mg PO TID [facility] Stop: 03/09/18 08:59 Last Admin: 01/13/18 13:36 Dose: 800 mg Lactobacillus Rhamnosus (Culturelle 15b) 1 each PO DAILY [facility] Stop: 03/10/18 08:59 Last Admin: 01/13/18 08:43 Dose: 1 each Lorazepam (Ativan) 0.5 mg PO Q4HR PRN; Protocol PRN Reason: Anxiety/AGITATION Stop: 03/08/18 23:46 Last Admin: 01/09/18 13:35 Dose: 0.5 mg Magnesium Hydroxide (Milk Of Magnesia) 30 ml PO DAILY [facility] Stop: 03/09/18 08:59 Last Admin: 01/13/18 08:44 Dose: 30 ml Multivitamins/Vitamin C (Theragran) 1 tab PO DAILY [facility] Stop: 03/09/18 08:59 Last Admin: 01/13/18 08:43 Dose: 1 tab Spironolactone (Aldactone) 25 mg PO DAILY [facility] Stop: 03/09/18 08:59 Last Admin: 01/13/18 08:43 Dose: 25 mg Trazodone HCl (Desyrel) 25 mg PO HS [facility]; Protocol Stop: 03/09/18 00:00 Last Admin: 01/12/18 20:19 Dose: 25 mg Zolpidem Tartrate (Ambien) 5 mg PO HS PRN PRN Reason: Insomnia Stop: 03/09/18 06:42 Last Admin: 01/12/18 20:19 Dose: 5 mg General: alert HEENT: NC/AT, PERRLA Neck: Supple Lungs: CTAB Cardiovascular: RRR, Normal S1, Normal S2, without murmur Abdomen: soft, non-tender, non-distended, positive bowel sound Extremities: excoriation Neurological: alert Internal Medicine Assmt/Plan - Assessment Assessment: depression anemia chronic pain syndrome - Plan Plan: fall precautions continue current meds from snf continue current plan of care Nutritional Asmnt/Malnutr-PDOC - Dietary Evaluation Malnutrition Findings (Please click <Entered> for more info): Nutritional Asmnt/Malnutrition Start: 01/10/18 14: 12 Text: Status: Complete Freq: Protocol: Document 01/10/18 14:12 LIDIA (Rec: 01/10/18 14:16 LIDIA [email or web address]) Nutritional Asmnt/Malnutrition Patient General Information Nutritional Screening Moderate Risk Diagnosis psychosis Pertinent Medical Hx/Surgical Hx sleep disorder, depression, anxiety Subjective Information Pt seen sitting on wheelchair in dining room, watching TV, alert and pleasant. Pt stated food has been very good, no food preference. Per EMR, PO intake 100%, meeting 100% of nutritional needs. Current Diet Order/ Nutrition Support [facility] soft chopped Pertinent Medications vit C, colace, iron, culturelle, theragran Pertinent Labs 01/07 Ca 8.4, glucose 88, Alb 3.6 Nutritional Hx/Data Height 5 ft 4 in Height (Calculated Centimeters) 162.6 Current Weight (lbs) 125 lb Weight (Calculated Kilograms) 56.7 Weight (Calculated Grams) 59337.0 [place] Body Weight 120 Body Mass Index (BMI) 21.4 Weight Status Approriate GI Symptoms GI Symptoms None Last BM 01/08 Difficult in: None Skin Integrity/Comment: intact Current %PO Good (75-100%) Estimated Nutritional Goals BEE in Kcals: Using Current wt Calories/Kcals/Kg 25-30 Kcals Calculated 2664-3075 Protein: Using Current wt Protein g/k Protein Calculated 67 Fluid: ml 1675-2010ml (1ml/lkcal) Nutritional Problem No current Nutrition Prob Problem N/A Intervention/Recommendation Comments 1. Continue with current diet as ordered. 2. Monitor PO intake, wt, labs and skin integrity 3. F/U as low risk in 7 days, 01/17 Expected Outcomes/Goals Expected Outcomes/Goals 1. PO intake to meet at least 75% of nutritional needs. 2. Wt stability, skin to remain intact, labs to approach WNL.
--- NOTE | 2018-01-14 02:37 | Progress Notes ---
DATE: 01/13/2018 PSYCHIATRIC PROGRESS NOTE SUBJECTIVE: Staff was spoken to. The patient is interviewed. Mood is noted to be anxious. The patient's insight and judgment are noted to be still impaired. Impulse control is noted to be very poor. Coping skills are also noted to be very poor. The patient has been still isolative and withdrawn. No side effects to the medications are noted. ASSESSMENT: The patient is still depressed. PLAN: To continue the patient with the supportive therapy and the patient is currently on the fluoxetine. Plan to continue that one and encouraged the patient to verbalize the concerns rather than to act out. JOB# [id number]
[2018-01-14] MEDS: Magnesium Hydroxide (MOM) 30 mL UDC PO SCH (09:01)
[2018-01-14] MEDS: Lactobacillus Rhamnosus GG 15 Billion CFU CAP.SPRINK PO SCH (09:01)
[2018-01-14] MEDS: Ferrous Sulfate 325 MG TAB PO SCH (09:02)
[2018-01-14] MEDS: Multivitamin Tab PO SCH (09:02)
--- NOTE | 2018-01-14 13:13 | Internal Medicine Prog Note ---
Internal Medicine Subjective - Subjective Service Date: 01/14/18 Patient is:: awake, verbal Per staff patient has:: tolerating meds Internal Medicine Objective - Results Result Diagrams: 01/07/18 21:01/07/18 21: Recent Labs: Laboratory Last Values WBC 7.5 Th/cmm (4.8-10.8) 01/07/18: RBC 3.96 Mil/cmm (3.80-5.20) 01/07/18: Hgb 12.1 gm/dL (12-16) 01/07/18: Hct 37.1 % (41.0-60) L 01/07/18: MCV 93.5 fl (81-100) 01/07/18: MCH 30.5 pg (27.0-31.0) 01/07/18: MCHC Differential 32.6 pg (28.0-36.0) 01/07/18: RDW 19.4 % (11.5-20.0) 01/07/18: Plt Count 325 Th/cmm (150-400) 01/07/18 21: MPV 7.4 fl 01/07/18 21: Neutrophils % 59.6 % (40.0-80.0) 01/07/18: Lymphocytes % 25.6 % (20.0-50.0) 01/07/18: Monocytes % 10.6 % (2.0-10.0) H 01/07/18: Eosinophils % 3.3 % (0.0-5.0) 01/07/18: Basophils % 0.9 % (0.0-2.0) 01/07/18 21: Sodium 138 mEq/L (136-145) 01/07/18 21: Potassium 3.9 mEq/L (3.5-5.1) 01/07/18: Chloride 105 mEq/L (98-107) 01/07/18 21: Carbon Dioxide 24.9 mEq/L (21.0-31.0) 01/07/18 21: Anion Gap 12.0 (7.0-16.0) 01/07/18 21: BUN 12 mg/dL (7-25) 01/07/18 21:40 Creatinine 0.7 mg/dL (0.6-1.2) 01/07/18 21:40 Est GFR ( Amer) > 60.0 ml/min (>90) 01/07/18 21:40 Est GFR (Non-Af Amer) > 60.0 ml/min 01/07/18 21:40 BUN/Creatinine Ratio 17.1 01/07/18 21:40 Glucose 88 mg/dL (70-105) 01/07/18 21:40 Calcium 8.4 mg/dL (8.6-10.3) L 01/07/18 21:40 Total Bilirubin 0.3 mg/dL (0.3-1.0) 01/07/18 21:40 AST 14 U/L (13-39) 01/07/18 21:40 ALT 20 U/L (7-52) 01/07/18 21:40 Alkaline Phosphatase 86 U/L (34-104) 01/07/18 21:40 Total Protein 5.6 gm/dL (6.0-8.3) L 01/07/18 21:40 Albumin 3.6 gm/dL (3.7-5.3) L 01/07/18 21:40 Globulin 2.0 gm/dL 01/07/18 21:40 Albumin/Globulin Ratio 1.8 (1.0-1.8) 01/07/18 21:40 Triglycerides 67 mg/dL (<150) 01/07/18 21:40 Cholesterol 167 mg/dL (<200) 01/07/18 21:40 LDL Cholesterol Direct 106 mg/dL (75-193) 01/07/18 21:40 HDL Cholesterol 51 mg/dL (23-92) 01/07/18 21:40 TSH 3.82 uIU/ml (0.34-5.60) 01/07/18 21:40 Salicylates < 25.0 mg/L (30.0-100.0) L 01/07/18 21:40 Acetaminophen < 10.0 ug/mL (10.0-30.0) L 01/07/18 21:40 Ethyl Alcohol < 10 mg/dL (0-10) 01/07/18 21:40 RPR NONREACTIVE (NONREACTIVE) 01/07/18 21:40 - Physical Exam Vitals and I&O: Vital Signs Temp 97.3 F 01/14/18 10:15 Pulse 69 01/14/18 10:15 Resp 18 01/14/18 10:15 BP 129/46 01/14/18 09:02 Pulse Ox 97 01/14/18 05:04 Intake & Output 01/13/18 01/14/18 01/14/18 18:59 06:59 18:59 Intake Total 480 Balance 480 Intake: Oral 480 Other: # Voids 2 2 # Bowel Movements 2 Stool Characteristics Soft Soft Brown Brown Active Medications: Current Medications Acetaminophen (Tylenol) 650 mg PO Q4H PRN PRN Reason: Mild Pain / Temp above 100 Stop: 03/09/18 06:42 Acetaminophen/Hydrocodone Bitart ([place] 5mg/325mg) 1 tab PO Q4H PRN PRN Reason: Pain (Severe) Stop: 03/09/18 06:42 Last Admin: 01/08/18 19:58 Dose: 1 tab Al Hydrox/Mg Hydrox/Simethicone (Maalox) 30 ml PO Q4H PRN PRN Reason: GI DISTRESS Stop: 03/09/18 06:42 Ascorbic Acid (Vitamin C) 500 mg PO DAILY [facility] Stop: 03/09/18 08:59 Last Admin: 01/14/18 09:02 Dose: 500 mg Bisacodyl (Dulcolax 10 Mg Supp) 10 mg RC DAILY PRN PRN Reason: Constipation Stop: 03/09/18 06:42 Docusate Sodium (Colace) 100 mg PO BID [facility] Stop: 03/09/18 08:59 Last Admin: 01/14/18 09:01 Dose: 100 mg Ferrous Sulfate (Iron) 325 mg PO BID [facility] Stop: 03/09/18 16:59 Last Admin: 01/14/18 09:02 Dose: 325 mg Fluoxetine HCl (Prozac) 10 mg PO DAILY [facility]; Protocol Stop: 03/09/18 08:59 Last Admin: 01/14/18 09:02 Dose: 10 mg Gabapentin (Neurontin) 300 mg PO TID [facility] Stop: 03/09/18 08:59 Last Admin: 01/14/18 09:01 Dose: 300 mg Ibuprofen (Motrin) 800 mg PO TID [facility] Stop: 03/09/18 08:59 Last Admin: 01/14/18 09:01 Dose: 800 mg Lactobacillus Rhamnosus (Culturelle 15b) 1 each PO DAILY [facility] Stop: 03/10/18 08:59 Last Admin: 01/14/18 09:01 Dose: 1 each Lorazepam (Ativan) 0.5 mg PO Q4HR PRN; Protocol PRN Reason: Anxiety/AGITATION Stop: 03/08/18 23:46 Last Admin: 01/09/18 13:35 Dose: 0.5 mg Magnesium Hydroxide (Milk Of Magnesia) 30 ml PO DAILY [facility] Stop: 03/09/18 08:59 Last Admin: 01/14/18 09:01 Dose: 30 ml Multivitamins/Vitamin C (Theragran) 1 tab PO DAILY [facility] Stop: 03/09/18 08:59 Last Admin: 01/14/18 09:02 Dose: 1 tab Spironolactone (Aldactone) 25 mg PO DAILY [facility] Stop: 03/09/18 08:59 Last Admin: 01/14/18 09:02 Dose: 25 mg Trazodone HCl (Desyrel) 25 mg PO HS [facility]; Protocol Stop: 03/09/18 00:00 Last Admin: 01/13/18 20:09 Dose: 25 mg Zolpidem Tartrate (Ambien) 5 mg PO HS PRN PRN Reason: Insomnia Stop: 03/09/18 06:42 Last Admin: 01/13/18 20:10 Dose: 5 mg General: alert HEENT: NC/AT, PERRLA Neck: Supple Lungs: CTAB Cardiovascular: RRR, Normal S1, Normal S2, without murmur Abdomen: soft, non-tender, non-distended, positive bowel sound Extremities: excoriation Neurological: alert Internal Medicine Assmt/Plan - Assessment Assessment: depression anemia chronic pain syndrome - Plan Plan: fall precautions continue current meds from snf continue current plan of care Nutritional Asmnt/Malnutr-PDOC - Dietary Evaluation Malnutrition Findings (Please click <Entered> for more info): Nutritional Asmnt/Malnutrition Start: 01/10/18 14: 12 Text: Status: Complete Freq: Protocol: Document 01/10/18 14:12 LIDIA (Rec: 01/10/18 14:16 LIDIA [email or web address]) Nutritional Asmnt/Malnutrition Patient General Information Nutritional Screening Moderate Risk Diagnosis psychosis Pertinent Medical Hx/Surgical Hx sleep disorder, depression, anxiety Subjective Information Pt seen sitting on wheelchair in dining room, watching TV, alert and pleasant. Pt stated food has been very good, no food preference. Per EMR, PO intake 100%, meeting 100% of nutritional needs. Current Diet Order/ Nutrition Support [facility] soft chopped Pertinent Medications vit C, colace, iron, culturelle, theragran Pertinent Labs 01/07 Ca 8.4, glucose 88, Alb 3.6 Nutritional Hx/Data Height 5 ft 4 in Height (Calculated Centimeters) 162.6 Current Weight (lbs) 125 lb Weight (Calculated Kilograms) 56.7 Weight (Calculated Grams) 39095.0 [place] Body Weight 120 Body Mass Index (BMI) 21.4 Weight Status Approriate GI Symptoms GI Symptoms None Last BM 01/08 Difficult in: None Skin Integrity/Comment: intact Current %PO Good (75-100%) Estimated Nutritional Goals BEE in Kcals: Using Current wt Calories/Kcals/Kg 25-30 Kcals Calculated 7522-9899 Protein: Using Current wt Protein g/k Protein Calculated 67 Fluid: ml 1675-2010ml (1ml/lkcal) Nutritional Problem No current Nutrition Prob Problem N/A Intervention/Recommendation Comments 1. Continue with current diet as ordered. 2. Monitor PO intake, wt, labs and skin integrity 3. F/U as low risk in 7 days, 01/17 Expected Outcomes/Goals Expected Outcomes/Goals 1. PO intake to meet at least 75% of nutritional needs. 2. Wt stability, skin to remain intact, labs to approach WNL.
--- NOTE | 2018-01-14 21:42 | Progress Notes ---
DATE: 01/14/2018 SUBJECTIVE: Staff was spoken to. The patient is interviewed. Mood is noted to be anxious. Affect is appropriate. Not suicidal or homicidal. No side effects to the medications are noted. Coping skills are noted to be improving. ASSESSMENT: The patient is stabilizing. PLAN: To discharge the patient today for followup on an outpatient basis. JOB# [id number]
== END 2018-01-14 14:35 | DRG 885 ==
LOC: ER 21:00 → GERO2 22:50
PROVIDERS: ADMIT Psychiatry & Neurology Psychiatry; ATTEND Psychiatry & Neurology Psychiatry
DX: F31.9 Bipolar disorder, unspecified (principal); F41.9 Anxiety disorder, unspecified; G89.4 Chronic pain syndrome; D64.9 Anemia, unspecified; Z88.2 Allergy status to sulfonamides; Z79.899 Other long term (current) drug therapy
CPT/HCPCS: 36415-UA; 80053-TC; 80061-TC; 80320-TC; 80329-TC; 83036-90; 84443-TC; 85025-TC; 86592-TC; 93005; Z7610

== ENCOUNTER 2018-07-08 18:59 | Inpatient (IN) | payer MEDICARE, MEDICAID ==
--- NOTE | 2018-07-08 20:09 | ED Physician Chart ---
ED Chief Complaint/HPI - Patient Information Date Seen:: 07/08/18 Time Seen:: 19:15 Chief Complaint:: they think im crazy Allergies:: Allergies Allergy/AdvReac Type Severity Reaction Status Date / Time sulfacetamide Allergy Verified 06/07/17 18:19 [From Sulfamide] Vitals:: Vital Signs - 8 hr 07/08/18 19:04 Temp 97.9 F HR 68 RR 19 BP 114/69 O2 Sat % 97 Review:: Nurse's Note Reviewed, Transfer documents Reviewed ED Review of Systems - Review of Systems General/Constitutional: No fever (unreliable historian) ED Past Medical History - Past Medical History Obtainable: No (psy chronic pain neuropathy) Medication: Reviewed Family Medical History - Family Member Mother History Unknown: Yes Ethnicity: Unknown Living Status: Unknown Hx Family Cancer: (unknown) Hx Family Coronary Artery Disease: (unknown) Hx Family Congestive Heart Failure: (unknown) Hx Family Hypertension: (unknown) Hx Family Stroke: (unknown) Hx Family Diabetes: (unknown) Hx Family Seizures: (unknown) Hx Family Dementia: (unknown) Hx Family AIDS: (unknown) Hx Family COPD: (unknown) Hx Family Hepatitis: (unknown) Hx Family Psychiatric Problems: (unknown) Hx Family Tuberculosis: (unknown) ED Physical Exam - Physical Examination General/Constitutional: Awake, No distress, Non-toxic appearing Head: Atraumatic Eyes: Lids, conjuctiva normal Skin: Nl inspection ENMT: External ears, nose nl Neck: Nontender Respiratory: Nl effort/Exclusion Cardio Vascular: RRR, No murmur, gallop, rubs GI: No tenderness/rebounding/guarding : No CVA tenderness Extremities: No tenderness or effusion Misc: Normal back ED Assessment - Assessment General Assessment: psychotic break anxiety chronic pain neuropathy ED Septic Shock - . Is Septic Shock (SBP<90, OR Lactate>4 mmol\L) present?: No - <6hrs of presentation: Vital Signs: Vital Signs - 8 hr 07/08/18 19:04 Temp 97.9 F HR 68 RR 19 BP 114/69 O2 Sat % 97 ED Reassessment (Disposition) - Reassessment Reassessment Condition:: Unchanged - Patient Disposition Discharge/Transfer:: Acute Care w/in this hosp
[2018-07-08 20:12] LABS: % BASOPHILS 1.6 % (0.0-2.0); % EOSINOPHILS 1.5 % (0.0-5.0); % LYMPHOCYTES 25.5 % (20.0-50.0); % MONOCYTES 8.1 % (2.0-10.0); % NEUTROPHILS 63.3 % (40.0-80.0); BASOPHILE ABSOLUTE 0.1 Th/cumm (0-0.2); EOSINOPHILE ABSOLUTE 0.1 Th/cmm (0.1-0.4); HEMATOCRIT 37.8 % (41.0-60); HEMOGLOBIN 12.3 gm/dL (12-16); LYMPHOCYTE ABSOLUTE 2.3 Th/cmm (1.5-3.0); MEAN CELL VOLUME 93.2 fl (81-100); MEAN CORPUSCULAR HEMOGLOBIN 30.4 pg (27.0-31.0); MEAN CORPUSCULAR HGB CONC 32.6 pg (28.0-36.0); MEAN PLATELET VOLUME 7.5 fl; MONOCYTE ABSOLUTE 0.7 Th/cmm (0.3-1.0); NEUTROPHILE ABSOLUTE 5.8 Th/cmm (1.8-8.0); PLATELET COUNT 325 Th/cmm (150-400); RED BLOOD COUNT 4.06 Mil/cmm (3.80-5.20); RED CELL DISTRIBUTION WIDTH 17.5 % (11.5-20.0)
[2018-07-08 20:23] LABS: ANION GAP 11.2 (7.0-16.0); BUN - UREA NITROGEN 15 mg/dL (7-25); CALCIUM SERUM 8.8 mg/dL (8.6-10.3); CARBON DIOXIDE 23.9 mEq/L (21.0-31.0); CHLORIDE 108 mEq/L (98-107); CREATININE - SERUM 0.6 mg/dL (0.6-1.2); GFR AFRICAN-AMERICAN > 60.0 ml/min (>90); GFR NON AFRICAN-AMERICAN > 60.0 ml/min; GLUCOSE 97 mg/dL (70-105); POTASSIUM SERUM 4.1 mEq/L (3.5-5.1); SODIUM SERUM 139 mEq/L (136-145)
[2018-07-08 21:45] VITALS: BP 110/73
[2018-07-08 22:11] LABS: CHOLESTEROL 167 mg/dL (<200); HDL -HIGH DENSITY LIPOPROTEIN 53 mg/dL (23-92); TRIGLYCERIDES 74 mg/dL (<150)
[2018-07-08] MEDS ORDERED: Magnesium Hydroxide (MOM) 30 mL UDC PO PRN (23:09)
[2018-07-09] MEDS: Ferrous Sulfate 325 MG TAB PO SCH ×2 (08:56→16:06)
[2018-07-09] MEDS: Lactobacillus Rhamnosus GG 15 Billion CFU CAP.SPRINK PO SCH (08:56)
[2018-07-09] MEDS: Multivitamin Tab PO SCH (08:56)
[2018-07-10] MEDS: Ferrous Sulfate 325 MG TAB PO SCH ×2 (08:34→16:26)
[2018-07-10] MEDS: Multivitamin Tab PO SCH (08:35)
[2018-07-10] MEDS: Lactobacillus Rhamnosus GG 15 Billion CFU CAP.SPRINK PO SCH (08:35)
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
--- NOTE | 2018-07-10 12:26 | Internal Medicine Prog Note ---
Internal Medicine Subjective - Subjective Patient seen and examined:: with staff, chart reviewed Patient is:: asleep, non-interactive, in bed Per staff patient has:: no adverse event, no episodes of fall, poor appetite, tolerating meds Internal Medicine Objective - Results Result Diagrams: 07/08/18 19:50 07/08/18 19:50 Recent Labs: Laboratory Last Values WBC 9.0 Th/cmm (4.8-10.8) 07/08/18 19:50 RBC 4.06 Mil/cmm (3.80-5.20) 07/08/18 19:50 Hgb 12.3 gm/dL (12-16) 07/08/18 19:50 Hct 37.8 % (41.0-60) L 07/08/18 19:50 MCV 93.2 fl (81-100) 07/08/18 19:50 MCH 30.4 pg (27.0-31.0) 07/08/18 19:50 MCHC Differential 32.6 pg (28.0-36.0) 07/08/18 19:50 RDW 17.5 % (11.5-20.0) 07/08/18 19:50 Plt Count 325 Th/cmm (150-400) 07/08/18 19:50 MPV 7.5 fl 07/08/18 19:50 Neutrophils % 63.3 % (40.0-80.0) 07/08/18 19:50 Lymphocytes % 25.5 % (20.0-50.0) 07/08/18 19:50 Monocytes % 8.1 % (2.0-10.0) 07/08/18 19:50 Eosinophils % 1.5 % (0.0-5.0) 07/08/18 19:50 Basophils % 1.6 % (0.0-2.0) 07/08/18 19:50 Sodium 139 mEq/L (136-145) 07/08/18 19:50 Potassium 4.1 mEq/L (3.5-5.1) 07/08/18 19:50 Chloride 108 mEq/L (98-107) H 07/08/18 19:50 Carbon Dioxide 23.9 mEq/L (21.0-31.0) 07/08/18 19:50 Anion Gap 11.2 (7.0-16.0) 07/08/18 19:50 BUN 15 mg/dL (7-25) 07/08/18 19:50 Creatinine 0.6 mg/dL (0.6-1.2) 07/08/18 19:50 Est GFR ( Amer) > 60.0 ml/min (>90) 07/08/18 19:50 Est GFR (Non-Af Amer) > 60.0 ml/min 07/08/18 19:50 BUN/Creatinine Ratio 25.0 07/08/18 19:50 Glucose 97 mg/dL (70-105) 07/08/18 19:50 Calcium 8.8 mg/dL (8.6-10.3) 07/08/18 19:50 Triglycerides 74 mg/dL (<150) 07/08/18 19:50 Cholesterol 167 mg/dL (<200) 07/08/18 19:50 LDL Cholesterol Direct 107 mg/dL (75-193) 07/08/18 19:50 HDL Cholesterol 53 mg/dL (23-92) 07/08/18 19:50 - Physical Exam Vitals and I&O: Vital Signs Temp 98.0 F 07/10/18 06:11 Pulse 75 07/10/18 08:38 Resp 18 07/10/18 06:11 BP 109/61 07/10/18 08:38 Pulse Ox 100 07/10/18 06:11 Intake & Output 07/09/18 07/10/18 07/10/18 18:59 06:59 18:59 Intake Total 120 Balance 120 Intake: Oral 120 Other: # Voids 3 2 # Bowel Movements 2 0 Active Medications: Current Medications Acetaminophen (Tylenol) 650 mg PO Q4H PRN PRN Reason: Mild Pain / Temp above 100 Stop: 09/06/18 23:08 Acetaminophen/Hydrocodone Bitart ([place] 5mg/325mg) 1 tab PO Q6H PRN PRN Reason: Pain (Severe) Stop: 09/06/18 23:02 Alprazolam (Xanax) 0.25 mg PO BID PRN; Protocol PRN Reason: Anxiety Stop: 09/07/18 08:59 Last Admin: 07/10/18 08:38 Dose: 0.25 mg Ascorbic Acid (Vitamin C) 500 mg PO DAILY [facility] Stop: 09/07/18 08:59 Last Admin: 07/10/18 08:34 Dose: 500 mg Docusate Sodium (Colace) 100 mg PO BID [facility] Stop: 09/07/18 08:59 Last Admin: 07/10/18 08:35 Dose: 100 mg Ferrous Sulfate (Iron) 325 mg PO BID [facility] Stop: 09/07/18 08:59 Last Admin: 07/10/18 08:34 Dose: 325 mg Fluoxetine HCl (Prozac) 10 mg PO DAILY [facility]; Protocol Stop: 09/07/18 08:59 Last Admin: 07/10/18 08:35 Dose: 10 mg Gabapentin (Neurontin) 300 mg PO TID [facility] Stop: 09/07/18 08:59 Last Admin: 07/10/18 08:35 Dose: 300 mg Ibuprofen (Motrin) 800 mg PO TID PRN PRN Reason: moderate pain Stop: 09/07/18 08:59 Lactobacillus Rhamnosus (Culturelle 15b) 1 each PO DAILY [facility] Stop: 09/07/18 08:59 Last Admin: 07/10/18 08:35 Dose: 1 each Magnesium Hydroxide (Milk Of Magnesia) 30 ml PO DAILY PRN PRN Reason: bowel maintenance Stop: 09/07/18 08:59 Multivitamins/Vitamin C (Theragran) 1 tab PO DAILY [facility] Stop: 09/07/18 08:59 Last Admin: 07/10/18 08:35 Dose: 1 tab Spironolactone (Aldactone) 25 mg PO DAILY [facility] Stop: 09/07/18 08:59 Last Admin: 07/10/18 08:38 Dose: 25 mg Trazodone HCl (Desyrel) 25 mg PO HS [facility]; Protocol Stop: 09/06/18 22:59 Last Admin: 07/09/18 21:05 Dose: 25 mg Zolpidem Tartrate (Ambien) 5 mg PO HS PRN PRN Reason: Insomnia Stop: 09/06/18 21:44 Last Admin: 07/09/18 21:05 Dose: 5 mg General: demented HEENT: NC/AT Neck: Supple, No JVD Lungs: CTAB Cardiovascular: RRR, Normal S1, Normal S2, without murmur Abdomen: soft, non-distended, positive bowel sound Extremities: excoriation, contracture Neurological: no change, disorganized Internal Medicine Assmt/Plan - Assessment Assessment: htn dementia oa - Plan Plan: continue on diuretics pain control fall precaution dvt and gastritis prophylaxis bhumi rn
[2018-07-10] MEDS: Hydrocodone/APAP 5mg/325mg Tab PO PRN (22:37)
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
--- NOTE | 2018-07-11 03:32 | Progress Notes ---
DATE: 07/10/2018 SUBJECTIVE: Staff was spoken to. The patient is interviewed. Mood is noted to be anxious. The patient is isolative and withdrawn. Coping skills are noted to be poor. The patient is reporting that she was not able to sleep last night. The patient is currently on dapsone 25 mg at bedtime, Prozac 10 mg in the morning. The patient is still depressed. Coping skills are noted to very poor. PLAN: To continue the patient with the supportive therapy. I encouraged the patient to verbalize the concerns rather than to act out. JOB# [id number]
[2018-07-11] MEDS: Multivitamin Tab PO SCH (09:29)
[2018-07-11] MEDS: Lactobacillus Rhamnosus GG 15 Billion CFU CAP.SPRINK PO SCH (09:30)
[2018-07-11] MEDS: Ferrous Sulfate 325 MG TAB PO SCH ×2 (09:33→16:41)
--- NOTE | 2018-07-11 12:17 | Internal Medicine Prog Note ---
Internal Medicine Subjective - Subjective Patient seen and examined:: with staff, chart reviewed Patient is:: asleep, non-interactive, in bed Per staff patient has:: no adverse event, no episodes of fall, poor appetite, tolerating meds Internal Medicine Objective - Results Result Diagrams: 07/08/18 19:50 07/08/18 19:50 Recent Labs: Laboratory Last Values WBC 9.0 Th/cmm (4.8-10.8) 07/08/18 19:50 RBC 4.06 Mil/cmm (3.80-5.20) 07/08/18 19:50 Hgb 12.3 gm/dL (12-16) 07/08/18 19:50 Hct 37.8 % (41.0-60) L 07/08/18 19:50 MCV 93.2 fl (81-100) 07/08/18 19:50 MCH 30.4 pg (27.0-31.0) 07/08/18 19:50 MCHC Differential 32.6 pg (28.0-36.0) 07/08/18 19:50 RDW 17.5 % (11.5-20.0) 07/08/18 19:50 Plt Count 325 Th/cmm (150-400) 07/08/18 19:50 MPV 7.5 fl 07/08/18 19:50 Neutrophils % 63.3 % (40.0-80.0) 07/08/18 19:50 Lymphocytes % 25.5 % (20.0-50.0) 07/08/18 19:50 Monocytes % 8.1 % (2.0-10.0) 07/08/18 19:50 Eosinophils % 1.5 % (0.0-5.0) 07/08/18 19:50 Basophils % 1.6 % (0.0-2.0) 07/08/18 19:50 Sodium 139 mEq/L (136-145) 07/08/18 19:50 Potassium 4.1 mEq/L (3.5-5.1) 07/08/18 19:50 Chloride 108 mEq/L (98-107) H 07/08/18 19:50 Carbon Dioxide 23.9 mEq/L (21.0-31.0) 07/08/18 19:50 Anion Gap 11.2 (7.0-16.0) 07/08/18 19:50 BUN 15 mg/dL (7-25) 07/08/18 19:50 Creatinine 0.6 mg/dL (0.6-1.2) 07/08/18 19:50 Est GFR ( Amer) > 60.0 ml/min (>90) 07/08/18 19:50 Est GFR (Non-Af Amer) > 60.0 ml/min 07/08/18 19:50 BUN/Creatinine Ratio 25.0 07/08/18 19:50 Glucose 97 mg/dL (70-105) 07/08/18 19:50 Calcium 8.8 mg/dL (8.6-10.3) 07/08/18 19:50 Triglycerides 74 mg/dL (<150) 07/08/18 19:50 Cholesterol 167 mg/dL (<200) 07/08/18 19:50 LDL Cholesterol Direct 107 mg/dL (75-193) 07/08/18 19:50 HDL Cholesterol 53 mg/dL (23-92) 07/08/18 19:50 - Physical Exam Vitals and I&O: Vital Signs Temp 97.9 F 07/11/18 06:38 Pulse 68 07/11/18 09:31 Resp 18 07/11/18 06:38 BP 102/61 07/11/18 09:31 Pulse Ox 97 07/11/18 06:38 Intake & Output 07/10/18 07/11/18 07/11/18 18:59 06:59 18:59 Intake Total 1200 120 Balance 1200 120 Intake: Oral 1200 120 Other: # Voids 3 3 # Bowel Movements 2 Active Medications: Current Medications Acetaminophen (Tylenol) 650 mg PO Q4H PRN PRN Reason: Mild Pain / Temp above 100 Stop: 09/06/18 23:08 Acetaminophen/Hydrocodone Bitart ([place] 5mg/325mg) 1 tab PO Q6H PRN PRN Reason: Pain (Severe) Stop: 09/06/18 23:02 Last Admin: 07/10/18 22:37 Dose: 1 tab Alprazolam (Xanax) 0.25 mg PO BID PRN; Protocol PRN Reason: Anxiety Stop: 09/07/18 08:59 Last Admin: 07/10/18 08:38 Dose: 0.25 mg Ascorbic Acid (Vitamin C) 500 mg PO DAILY [facility] Stop: 09/07/18 08:59 Last Admin: 07/11/18 09:33 Dose: 500 mg Docusate Sodium (Colace) 100 mg PO BID [facility] Stop: 09/07/18 08:59 Last Admin: 07/11/18 09:33 Dose: 100 mg Ferrous Sulfate (Iron) 325 mg PO BID [facility] Stop: 09/07/18 08:59 Last Admin: 07/11/18 09:33 Dose: 325 mg Fluoxetine HCl (Prozac) 10 mg PO DAILY [facility]; Protocol Stop: 09/07/18 08:59 Last Admin: 07/11/18 09:34 Dose: 10 mg Gabapentin (Neurontin) 300 mg PO TID [facility] Stop: 09/07/18 08:59 Last Admin: 07/11/18 09:29 Dose: 300 mg Ibuprofen (Motrin) 800 mg PO TID PRN PRN Reason: moderate pain Stop: 09/07/18 08:59 Last Admin: 07/11/18 09:29 Dose: 800 mg Lactobacillus Rhamnosus (Culturelle 15b) 1 each PO DAILY [facility] Stop: 09/07/18 08:59 Last Admin: 07/11/18 09:30 Dose: 1 each Magnesium Hydroxide (Milk Of Magnesia) 30 ml PO DAILY PRN PRN Reason: bowel maintenance Stop: 09/07/18 08:59 Multivitamins/Vitamin C (Theragran) 1 tab PO DAILY [facility] Stop: 09/07/18 08:59 Last Admin: 07/11/18 09:29 Dose: 1 tab Spironolactone (Aldactone) 25 mg PO DAILY [facility] Stop: 09/07/18 08:59 Last Admin: 07/11/18 09:31 Dose: 25 mg Trazodone HCl (Desyrel) 25 mg PO HS [facility]; Protocol Stop: 09/06/18 22:59 Last Admin: 07/10/18 21:28 Dose: 25 mg Zolpidem Tartrate (Ambien) 5 mg PO HS PRN PRN Reason: Insomnia Stop: 09/06/18 21:44 Last Admin: 07/10/18 21:28 Dose: 5 mg General: demented HEENT: NC/AT Neck: Supple, No JVD Lungs: CTAB Cardiovascular: RRR, Normal S1, Normal S2, without murmur Abdomen: soft, non-distended, positive bowel sound Extremities: excoriation, contracture Neurological: no change, disorganized Internal Medicine Assmt/Plan - Assessment Assessment: htn dementia oa - Plan Plan: continue on diuretics pain control fall precaution dvt and gastritis prophylaxis bhumi rn
[2018-07-11] MEDS: Hydrocodone/APAP 5mg/325mg Tab PO PRN ×2 (13:36→23:23)
--- NOTE | 2018-07-12 04:33 | Progress Notes ---
DATE: 07/11/2018 SUBJECTIVE: Staff was spoken to. The patient is interviewed. Mood is noted to be irritable. Affect is constricted. The patient's insight and judgment are noted to be impaired. Impulse control is noted to be limited. The patient has been having difficult time to cope with the stress. The patient is anxious and depressed at this time. The patient is able to verbalize the concerns rather than to act out. No side effects to the medications are noted. ASSESSMENT: The patient is still depressed. PLAN: To continue the patient with the supportive therapy and followup. JOB# [id number]
[2018-07-12] MEDS: Multivitamin Tab PO SCH (08:17)
[2018-07-12] MEDS: Ferrous Sulfate 325 MG TAB PO SCH ×2 (08:17→16:44)
[2018-07-12] MEDS: Lactobacillus Rhamnosus GG 15 Billion CFU CAP.SPRINK PO SCH (08:17)
--- NOTE | 2018-07-12 12:01 | History & Physical ---
ADMIT DATE: . HISTORY OF PRESENT ILLNESS: This is a 67-year-old female with history of hypertension, arthritis, chronic pain syndrome, history of left hip pain secondary to previous fracture. According to her, it never healed properly. The patient denies chest pain or shortness of breath. PAST MEDICAL HISTORY: As mentioned in the history of present illness. PAST SURGICAL HISTORY: Status post left hip surgery. ALLERGIES: SULFACETAMIDE. MEDICATIONS: The patient is on [place], Tylenol, Ambien, alprazolam, vitamin C, Colace, fluoxetine, iron, gabapentin, ibuprofen, multivitamins, Aldactone, trazadone. FAMILY HISTORY: Noncontributory. SOCIAL HISTORY: The patient lives in a senior living. The patient is an avid smoker, used to drink. 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 REVIEW OF SYSTEMS: GENERAL: Complains of not feeling well. HEENT: No blurred vision or pain. LUNGS: No diagnosis of COPD or asthma. HEART: The patient with hypertension and diabetes. ABDOMEN: No nausea, vomiting, pain. History of reflux. GENITOURINARY: The patient denies increased frequency or dysuria. NEUROLOGIC: No headache, seizure or syncope. PSYCHIATRIC: As stated above. PHYSICAL EXAMINATION: VITAL SIGNS: Blood pressure 109/60, respirations 18, pulse 74, temperature 97.8. GENERAL: An elderly female, appears stated age. NECK: Supple. No mass. LUNGS: Equal breath sounds, a few rhonchi. HEART: Regular rate and rhythm, systolic ejection murmur. ABDOMEN: Soft, globular. EXTREMITIES: Positive excoriation. NEUROLOGIC: Limited. LABORATORY DATA: WBC 9, hemoglobin 12, and platelets 325. Sodium 130, potassium 4.1, BUN 15, creatinine 0.6. Cholesterol is 167. 1. ASSESSMENT AND PLAN: Hypertension, osteoarthritis, chronic pain syndrome, chronic left hip pain secondary to previous fracture. Continue . Continue pain medication. Continue on gabapentin for neuropathic pain. We will review the patient's medications. We will continue to follow up with you. [facility]# [id number]
--- NOTE | 2018-07-12 12:03 | Internal Medicine Prog Note ---
Internal Medicine Subjective - Subjective Patient seen and examined:: with staff, chart reviewed Patient is:: asleep, non-interactive, in bed Per staff patient has:: no adverse event, no episodes of fall, poor appetite, tolerating meds Internal Medicine Objective - Results Result Diagrams: 07/08/18 19:50 07/08/18 19:50 Recent Labs: Laboratory Last Values WBC 9.0 Th/cmm (4.8-10.8) 07/08/18 19:50 RBC 4.06 Mil/cmm (3.80-5.20) 07/08/18 19:50 Hgb 12.3 gm/dL (12-16) 07/08/18 19:50 Hct 37.8 % (41.0-60) L 07/08/18 19:50 MCV 93.2 fl (81-100) 07/08/18 19:50 MCH 30.4 pg (27.0-31.0) 07/08/18 19:50 MCHC Differential 32.6 pg (28.0-36.0) 07/08/18 19:50 RDW 17.5 % (11.5-20.0) 07/08/18 19:50 Plt Count 325 Th/cmm (150-400) 07/08/18 19:50 MPV 7.5 fl 07/08/18 19:50 Neutrophils % 63.3 % (40.0-80.0) 07/08/18 19:50 Lymphocytes % 25.5 % (20.0-50.0) 07/08/18 19:50 Monocytes % 8.1 % (2.0-10.0) 07/08/18 19:50 Eosinophils % 1.5 % (0.0-5.0) 07/08/18 19:50 Basophils % 1.6 % (0.0-2.0) 07/08/18 19:50 Sodium 139 mEq/L (136-145) 07/08/18 19:50 Potassium 4.1 mEq/L (3.5-5.1) 07/08/18 19:50 Chloride 108 mEq/L (98-107) H 07/08/18 19:50 Carbon Dioxide 23.9 mEq/L (21.0-31.0) 07/08/18 19:50 Anion Gap 11.2 (7.0-16.0) 07/08/18 19:50 BUN 15 mg/dL (7-25) 07/08/18 19:50 Creatinine 0.6 mg/dL (0.6-1.2) 07/08/18 19:50 Est GFR ( Amer) > 60.0 ml/min (>90) 07/08/18 19:50 Est GFR (Non-Af Amer) > 60.0 ml/min 07/08/18 19:50 BUN/Creatinine Ratio 25.0 07/08/18 19:50 Glucose 97 mg/dL (70-105) 07/08/18 19:50 Calcium 8.8 mg/dL (8.6-10.3) 07/08/18 19:50 Triglycerides 74 mg/dL (<150) 07/08/18 19:50 Cholesterol 167 mg/dL (<200) 07/08/18 19:50 LDL Cholesterol Direct 107 mg/dL (75-193) 07/08/18 19:50 HDL Cholesterol 53 mg/dL (23-92) 07/08/18 19:50 - Physical Exam Vitals and I&O: Vital Signs Temp 98.6 F 07/12/18 05:56 Pulse 78 07/12/18 08:17 Resp 19 07/12/18 05:56 BP 106/72 07/12/18 08:17 Pulse Ox 96 07/12/18 05:56 Intake & Output 07/11/18 07/12/18 07/12/18 18:59 06:59 18:59 Intake Total 1000 120 Balance 1000 120 Intake: Oral 1000 120 Other: # Voids 3 2 # Bowel Movements 0 0 Active Medications: Current Medications Acetaminophen (Tylenol) 650 mg PO Q4H PRN PRN Reason: Mild Pain / Temp above 100 Stop: 09/06/18 23:08 Acetaminophen/Hydrocodone Bitart ([place] 5mg/325mg) 1 tab PO Q6H PRN PRN Reason: Pain (Severe) Stop: 09/06/18 23:02 Last Admin: 07/11/18 23:23 Dose: 1 tab Alprazolam (Xanax) 0.25 mg PO BID PRN; Protocol PRN Reason: Anxiety Stop: 09/07/18 08:59 Last Admin: 07/10/18 08:38 Dose: 0.25 mg Ascorbic Acid (Vitamin C) 500 mg PO DAILY [facility] Stop: 09/07/18 08:59 Last Admin: 07/12/18 08:17 Dose: 500 mg Docusate Sodium (Colace) 100 mg PO BID [facility] Stop: 09/07/18 08:59 Last Admin: 07/12/18 08:17 Dose: 100 mg Ferrous Sulfate (Iron) 325 mg PO BID [facility] Stop: 09/07/18 08:59 Last Admin: 07/12/18 08:17 Dose: 325 mg Fluoxetine HCl (Prozac) 10 mg PO DAILY [facility]; Protocol Stop: 09/07/18 08:59 Last Admin: 07/12/18 08:17 Dose: 10 mg Gabapentin (Neurontin) 300 mg PO TID [facility] Stop: 09/07/18 08:59 Last Admin: 07/12/18 08:18 Dose: 300 mg Ibuprofen (Motrin) 800 mg PO TID PRN PRN Reason: moderate pain Stop: 09/07/18 08:59 Last Admin: 07/12/18 10:48 Dose: 800 mg Lactobacillus Rhamnosus (Culturelle 15b) 1 each PO DAILY [facility] Stop: 09/07/18 08:59 Last Admin: 07/12/18 08:17 Dose: 1 each Magnesium Hydroxide (Milk Of Magnesia) 30 ml PO DAILY PRN PRN Reason: bowel maintenance Stop: 09/07/18 08:59 Multivitamins/Vitamin C (Theragran) 1 tab PO DAILY [facility] Stop: 09/07/18 08:59 Last Admin: 07/12/18 08:17 Dose: 1 tab Spironolactone (Aldactone) 25 mg PO DAILY [facility] Stop: 09/07/18 08:59 Last Admin: 07/12/18 08:17 Dose: 25 mg Trazodone HCl (Desyrel) 25 mg PO HS [facility]; Protocol Stop: 09/06/18 22:59 Last Admin: 07/11/18 20:58 Dose: 25 mg Zolpidem Tartrate (Ambien) 5 mg PO HS PRN PRN Reason: Insomnia Stop: 09/06/18 21:44 Last Admin: 07/10/18 21:28 Dose: 5 mg General: demented HEENT: NC/AT Neck: Supple, No JVD Lungs: CTAB Cardiovascular: RRR, Normal S1, Normal S2, without murmur Abdomen: soft, non-distended, positive bowel sound Extremities: excoriation, contracture Neurological: no change, disorganized Internal Medicine Assmt/Plan - Assessment Assessment: htn dementia oa - Plan Plan: continue on diuretics pain control fall precaution dvt and gastritis prophylaxis dw rn Nutritional Asmnt/Malnutr-PDOC - Dietary Evaluation Malnutrition Findings (Please click <Entered> for more info): Nutritional Asmnt/Malnutrition Start: 07/12/18 11: 04 Text: Status: Active Freq: Protocol: Document 07/12/18 11:08 ALANNAH (Rec: 07/12/18 11:27 ALANNAH [email or web address]) Nutritional Asmnt/Malnutrition Patient General Information Nutritional Screening Moderate Risk Diagnosis psychosis Pertinent Medical Hx/Surgical Hx psy chronic pain neuropathy Subjective Information per EMR, PO intake 100%. Current Diet Order/ Nutrition Support mech soft chopped, ANDREW Pertinent Medications vit C, colace, iron, culturelle, theragran Pertinent Labs 07/08 Cl 108 Nutritional Hx/Data Height 1.63 m Height (Calculated Centimeters) 162.6 Current Weight (lbs) 58.967 kg Weight (Calculated Kilograms) 59.0 Weight (Calculated Grams) 75091.0 [place] Body Weight 120 Body Mass Index (BMI) 22.3 Weight Status Approriate GI Symptoms GI Symptoms None Last BM 07/10 x 2 Difficult in: None Skin Integrity/Comment: ashkan Mcintyre Current %PO Good (75-100%) Estimated Nutritional Goals BEE in Kcals: Using Current wt Calories/Kcals/Kg 25-30 Kcals Calculated 6194-1460 Protein: Using Current wt Protein g/k Protein Calculated 59 Fluid: ml 1475-1770ml (1ml/kcal) Nutritional Problem No current Nutrition Prob Problem N/A Intervention/Recommendation Comments 1. Continue with mech soft chopped ANDREW diet as ordered. 2. Monitor PO intake, wt, labs and skin integrity 3. F/U as Expected Outcomes/Goals Expected Outcomes/Goals 1. PO intake to meet at least 75% of nutritional needs. 2. Wt stability, skin to remain intact, labs to approach WNL.
[2018-07-12] MEDS: Hydrocodone/APAP 5mg/325mg Tab PO PRN (16:44)
--- NOTE | 2018-07-13 04:09 | Progress Notes ---
DATE: 07/12/2018 SUBJECTIVE: Staff was spoken to. The patient is interviewed. Mood is noted to be depressed. Affect is constricted. Insight and judgment are noted to be still impaired. Impulse control is noted to be limited. Coping skills are noted to be limited. The patient has been still ____, currently on 10 mg of the Prozac. Plan to increase that one to 20 mg and follow the patient up with the supportive therapy. The patient has been reluctant to participate in the groups. The patient, however, has been ____ at this time. follow. The patient is reporting that she was not able to sleep last night. The patient is currently on dapsone 25 mg at bedtime, Prozac 10 mg in the morning. The patient is still depressed. Coping skills are noted to very poor. ASSESSMENT: The patient is still depressed. PLAN: To continue the patient with the supportive therapy and followup. [facility]# [id number]
[2018-07-13] MEDS: Ferrous Sulfate 325 MG TAB PO SCH ×2 (08:44→17:02)
[2018-07-13] MEDS: Multivitamin Tab PO SCH (08:44)
[2018-07-13] MEDS: Lactobacillus Rhamnosus GG 15 Billion CFU CAP.SPRINK PO SCH (08:46)
[2018-07-13] MEDS: Hydrocodone/APAP 5mg/325mg Tab PO PRN ×2 (08:56→17:02)
--- NOTE | 2018-07-13 12:13 | Internal Medicine Prog Note ---
Internal Medicine Subjective - Subjective Patient seen and examined:: with staff, chart reviewed Patient is:: asleep, non-interactive, in bed Per staff patient has:: no adverse event, no episodes of fall, poor appetite, tolerating meds Internal Medicine Objective - Results Result Diagrams: 07/08/18 19:50 07/08/18 19:50 Recent Labs: Laboratory Last Values WBC 9.0 Th/cmm (4.8-10.8) 07/08/18 19:50 RBC 4.06 Mil/cmm (3.80-5.20) 07/08/18 19:50 Hgb 12.3 gm/dL (12-16) 07/08/18 19:50 Hct 37.8 % (41.0-60) L 07/08/18 19:50 MCV 93.2 fl (81-100) 07/08/18 19:50 MCH 30.4 pg (27.0-31.0) 07/08/18 19:50 MCHC Differential 32.6 pg (28.0-36.0) 07/08/18 19:50 RDW 17.5 % (11.5-20.0) 07/08/18 19:50 Plt Count 325 Th/cmm (150-400) 07/08/18 19:50 MPV 7.5 fl 07/08/18 19:50 Neutrophils % 63.3 % (40.0-80.0) 07/08/18 19:50 Lymphocytes % 25.5 % (20.0-50.0) 07/08/18 19:50 Monocytes % 8.1 % (2.0-10.0) 07/08/18 19:50 Eosinophils % 1.5 % (0.0-5.0) 07/08/18 19:50 Basophils % 1.6 % (0.0-2.0) 07/08/18 19:50 Sodium 139 mEq/L (136-145) 07/08/18 19:50 Potassium 4.1 mEq/L (3.5-5.1) 07/08/18 19:50 Chloride 108 mEq/L (98-107) H 07/08/18 19:50 Carbon Dioxide 23.9 mEq/L (21.0-31.0) 07/08/18 19:50 Anion Gap 11.2 (7.0-16.0) 07/08/18 19:50 BUN 15 mg/dL (7-25) 07/08/18 19:50 Creatinine 0.6 mg/dL (0.6-1.2) 07/08/18 19:50 Est GFR ( Amer) > 60.0 ml/min (>90) 07/08/18 19:50 Est GFR (Non-Af Amer) > 60.0 ml/min 07/08/18 19:50 BUN/Creatinine Ratio 25.0 07/08/18 19:50 Glucose 97 mg/dL (70-105) 07/08/18 19:50 Calcium 8.8 mg/dL (8.6-10.3) 07/08/18 19:50 Triglycerides 74 mg/dL (<150) 07/08/18 19:50 Cholesterol 167 mg/dL (<200) 07/08/18 19:50 LDL Cholesterol Direct 107 mg/dL (75-193) 07/08/18 19:50 HDL Cholesterol 53 mg/dL (23-92) 07/08/18 19:50 - Physical Exam Vitals and I&O: Vital Signs Temp 97.5 F 07/13/18 05:46 Pulse 68 07/13/18 08:49 Resp 19 07/13/18 05:46 BP 102/61 07/13/18 08:49 Pulse Ox 98 07/13/18 05:46 Intake & Output 07/12/18 07/13/18 07/13/18 18:59 06:59 18:59 Intake Total 950 120 Balance 950 120 Intake: Oral 950 120 Other: # Voids 4 2 # Bowel Movements 0 0 Active Medications: Current Medications Acetaminophen (Tylenol) 650 mg PO Q4H PRN PRN Reason: Mild Pain / Temp above 100 Stop: 09/06/18 23:08 Acetaminophen/Hydrocodone Bitart ([place] 5mg/325mg) 1 tab PO Q6H PRN PRN Reason: Pain (Severe) Stop: 09/06/18 23:02 Last Admin: 07/13/18 08:56 Dose: 1 tab Alprazolam (Xanax) 0.25 mg PO BID PRN; Protocol PRN Reason: Anxiety Stop: 09/07/18 08:59 Last Admin: 07/10/18 08:38 Dose: 0.25 mg Ascorbic Acid (Vitamin C) 500 mg PO DAILY [facility] Stop: 09/07/18 08:59 Last Admin: 07/13/18 08:46 Dose: 500 mg Docusate Sodium (Colace) 100 mg PO BID [facility] Stop: 09/07/18 08:59 Last Admin: 07/13/18 08:46 Dose: 100 mg Ferrous Sulfate (Iron) 325 mg PO BID [facility] Stop: 09/07/18 08:59 Last Admin: 07/13/18 08:44 Dose: 325 mg Fluoxetine HCl (Prozac) 20 mg PO DAILY [facility]; Protocol Stop: 09/11/18 08:59 Last Admin: 07/13/18 08:00 Dose: 20 mg Gabapentin (Neurontin) 300 mg PO TID [facility] Stop: 09/07/18 08:59 Last Admin: 07/13/18 08:45 Dose: 300 mg Ibuprofen (Motrin) 800 mg PO TID PRN PRN Reason: moderate pain Stop: 09/07/18 08:59 Last Admin: 07/12/18 10:48 Dose: 800 mg Lactobacillus Rhamnosus (Culturelle 15b) 1 each PO DAILY [facility] Stop: 09/07/18 08:59 Last Admin: 07/13/18 08:46 Dose: 1 each Magnesium Hydroxide (Milk Of Magnesia) 30 ml PO DAILY PRN PRN Reason: bowel maintenance Stop: 09/07/18 08:59 Multivitamins/Vitamin C (Theragran) 1 tab PO DAILY [facility] Stop: 09/07/18 08:59 Last Admin: 07/13/18 08:44 Dose: 1 tab Spironolactone (Aldactone) 25 mg PO DAILY [facility] Stop: 09/07/18 08:59 Last Admin: 07/13/18 08:49 Dose: 25 mg Trazodone HCl (Desyrel) 25 mg PO HS [facility]; Protocol Stop: 09/06/18 22:59 Last Admin: 07/12/18 21:07 Dose: 25 mg Zolpidem Tartrate (Ambien) 5 mg PO HS PRN PRN Reason: Insomnia Stop: 09/06/18 21:44 Last Admin: 07/12/18 21:08 Dose: 5 mg General: demented HEENT: NC/AT Neck: Supple, No JVD Lungs: CTAB Cardiovascular: RRR, Normal S1, Normal S2, without murmur Abdomen: soft, non-distended, positive bowel sound Extremities: excoriation, contracture Neurological: no change, disorganized Internal Medicine Assmt/Plan - Assessment Assessment: htn dementia oa - Plan Plan: continue on diuretics pain control fall precaution dvt and gastritis prophylaxis dw rn Nutritional Asmnt/Malnutr-PDOC - Dietary Evaluation Malnutrition Findings (Please click <Entered> for more info): Nutritional Asmnt/Malnutrition Start: 07/12/18 11: 04 Text: Status: Complete Freq: Protocol: Document 07/12/18 11:08 ALANNAH (Rec: 07/12/18 11:27 HEN [email or web address]) Nutritional Asmnt/Malnutrition Patient General Information Nutritional Screening Moderate Risk Diagnosis psychosis Pertinent Medical Hx/Surgical Hx psy chronic pain neuropathy Subjective Information per EMR, PO intake 100%. Current Diet Order/ Nutrition Support mech soft chopped, ANDREW Pertinent Medications vit C, colace, iron, culturelle, theragran Pertinent Labs 07/08 Cl 108 Nutritional Hx/Data Height 1.63 m Height (Calculated Centimeters) 162.6 Current Weight (lbs) 58.967 kg Weight (Calculated Kilograms) 59.0 Weight (Calculated Grams) 87876.0 [place] Body Weight 120 Body Mass Index (BMI) 22.3 Weight Status Approriate GI Symptoms GI Symptoms None Last BM 07/10 x 2 Difficult in: None Skin Integrity/Comment: ashkan Mcintyre Current %PO Good (75-100%) Estimated Nutritional Goals BEE in Kcals: Using Current wt Calories/Kcals/Kg 25-30 Kcals Calculated 1384-1200 Protein: Using Current wt Protein g/k Protein Calculated 59 Fluid: ml 1475-1770ml (1ml/kcal) Nutritional Problem No current Nutrition Prob Problem N/A Intervention/Recommendation Comments 1. Continue with mech soft chopped ANDREW diet as ordered. 2. Monitor PO intake, wt, labs and skin integrity 3. F/U as low risk in 7 days Expected Outcomes/Goals Expected Outcomes/Goals 1. PO intake to meet at least 75% of nutritional needs. 2. Wt stability, skin to remain intact, labs to approach WNL.
--- NOTE | 2018-07-13 12:24 | Progress Notes ---
DATE: 07/12/2018 PSYCHOLOGY PROGRESS NOTE SUBJECTIVE: The patient is seen and is interviewed. Case is discussed with staff. The patient continues to be irritable and dismissive with this hand sign writer. The patient is obviously having a difficult time coping. The patient seems to be anxious as well as depressed. The staff reports that the patient has not had any behavioral flareups. OBJECTIVE: Mood is irritable. Affect is constricted. Thought process shows to be confused. The patient denied any hallucinations or delusions or suicidal ideation. The patient has been difficult to redirect at times, but is mostly compliant with her care and is taking her p.o. medications. ASSESSMENT AND PLAN: The patient continues to be depressed. We provided cognitive behavioral therapy to reduce the patient's depression. We provided coping strategies for phase of life issues. We provided remotivation for the patient to stay compliant with all aspects of her care and treatment. We encouraged the patient to demonstrate emotional and self-regulation and to verbalize her concerns versus acting out. We will continue to provide the present treatment and follow up in 2 days if the patient remains admitted on the unit. JOB# [id number] DANDRE
--- NOTE | 2018-07-13 14:38 | Progress Notes ---
DATE: 07/13/2018 PSYCHIATRIC PROGRESS NOTE SUBJECTIVE: Staff was spoken to. The patient is interviewed. The patient is irritable. Affect is constricted. The patient's insight and judgment are noted to be still impaired. Impulse control is noted to be limited. The patient is isolative and withdrawn. ASSESSMENT: The patient is still depressed and is not able to contract for safety. PLAN: To continue the patient with the supportive therapy. Encouraged the patient to verbalize the concerns rather than to act out. JOB# [id number]
[2018-07-14] MEDS: Multivitamin Tab PO SCH (09:58)
[2018-07-14] MEDS: Ferrous Sulfate 325 MG TAB PO SCH ×2 (10:00→17:42)
[2018-07-14] MEDS: Lactobacillus Rhamnosus GG 15 Billion CFU CAP.SPRINK PO SCH (10:00)
--- NOTE | 2018-07-14 11:43 | Internal Medicine Prog Note ---
Internal Medicine Subjective - Subjective Patient seen and examined:: with staff, chart reviewed Patient is:: asleep, non-interactive, in bed Per staff patient has:: no adverse event, no episodes of fall, poor appetite, tolerating meds Internal Medicine Objective - Results Result Diagrams: 07/08/18 19:50 07/08/18 19:50 Recent Labs: Laboratory Last Values WBC 9.0 Th/cmm (4.8-10.8) 07/08/18 19:50 RBC 4.06 Mil/cmm (3.80-5.20) 07/08/18 19:50 Hgb 12.3 gm/dL (12-16) 07/08/18 19:50 Hct 37.8 % (41.0-60) L 07/08/18 19:50 MCV 93.2 fl (81-100) 07/08/18 19:50 MCH 30.4 pg (27.0-31.0) 07/08/18 19:50 MCHC Differential 32.6 pg (28.0-36.0) 07/08/18 19:50 RDW 17.5 % (11.5-20.0) 07/08/18 19:50 Plt Count 325 Th/cmm (150-400) 07/08/18 19:50 MPV 7.5 fl 07/08/18 19:50 Neutrophils % 63.3 % (40.0-80.0) 07/08/18 19:50 Lymphocytes % 25.5 % (20.0-50.0) 07/08/18 19:50 Monocytes % 8.1 % (2.0-10.0) 07/08/18 19:50 Eosinophils % 1.5 % (0.0-5.0) 07/08/18 19:50 Basophils % 1.6 % (0.0-2.0) 07/08/18 19:50 Sodium 139 mEq/L (136-145) 07/08/18 19:50 Potassium 4.1 mEq/L (3.5-5.1) 07/08/18 19:50 Chloride 108 mEq/L (98-107) H 07/08/18 19:50 Carbon Dioxide 23.9 mEq/L (21.0-31.0) 07/08/18 19:50 Anion Gap 11.2 (7.0-16.0) 07/08/18 19:50 BUN 15 mg/dL (7-25) 07/08/18 19:50 Creatinine 0.6 mg/dL (0.6-1.2) 07/08/18 19:50 Est GFR ( Amer) > 60.0 ml/min (>90) 07/08/18 19:50 Est GFR (Non-Af Amer) > 60.0 ml/min 07/08/18 19:50 BUN/Creatinine Ratio 25.0 07/08/18 19:50 Glucose 97 mg/dL (70-105) 07/08/18 19:50 Calcium 8.8 mg/dL (8.6-10.3) 07/08/18 19:50 Triglycerides 74 mg/dL (<150) 07/08/18 19:50 Cholesterol 167 mg/dL (<200) 07/08/18 19:50 LDL Cholesterol Direct 107 mg/dL (75-193) 07/08/18 19:50 HDL Cholesterol 53 mg/dL (23-92) 07/08/18 19:50 - Physical Exam Vitals and I&O: Vital Signs Temp 97.8 F 07/14/18 06:22 Pulse 69 07/14/18 09:58 Resp 18 07/14/18 06:22 BP 100/53 07/14/18 09:58 Pulse Ox 98 07/14/18 06:22 Intake & Output 07/13/18 07/14/18 07/14/18 18:59 06:59 18:59 Intake Total 1400 140 Balance 1400 140 Intake: Oral 1400 140 Other: # Voids 3 3 # Bowel Movements 1 0 Active Medications: Current Medications Acetaminophen (Tylenol) 650 mg PO Q4H PRN PRN Reason: Mild Pain / Temp above 100 Stop: 09/06/18 23:08 Acetaminophen/Hydrocodone Bitart ([place] 5mg/325mg) 1 tab PO Q6H PRN PRN Reason: Pain (Severe) Stop: 09/06/18 23:02 Last Admin: 07/13/18 17:02 Dose: 1 tab Alprazolam (Xanax) 0.25 mg PO BID PRN; Protocol PRN Reason: Anxiety Stop: 09/07/18 08:59 Last Admin: 07/10/18 08:38 Dose: 0.25 mg Ascorbic Acid (Vitamin C) 500 mg PO DAILY [facility] Stop: 09/07/18 08:59 Last Admin: 07/14/18 09:57 Dose: 500 mg Docusate Sodium (Colace) 100 mg PO BID [facility] Stop: 09/07/18 08:59 Last Admin: 07/14/18 09:59 Dose: 100 mg Ferrous Sulfate (Iron) 325 mg PO BID [facility] Stop: 09/07/18 08:59 Last Admin: 07/14/18 10:00 Dose: 325 mg Fluoxetine HCl (Prozac) 20 mg PO DAILY [facility]; Protocol Stop: 09/11/18 08:59 Last Admin: 07/14/18 10:01 Dose: 20 mg Gabapentin (Neurontin) 300 mg PO TID [facility] Stop: 09/07/18 08:59 Last Admin: 07/14/18 10:01 Dose: 300 mg Ibuprofen (Motrin) 800 mg PO TID PRN PRN Reason: moderate pain Stop: 09/07/18 08:59 Last Admin: 07/12/18 10:48 Dose: 800 mg Lactobacillus Rhamnosus (Culturelle 15b) 1 each PO DAILY [facility] Stop: 09/07/18 08:59 Last Admin: 07/14/18 10:00 Dose: 1 each Magnesium Hydroxide (Milk Of Magnesia) 30 ml PO DAILY PRN PRN Reason: bowel maintenance Stop: 09/07/18 08:59 Multivitamins/Vitamin C (Theragran) 1 tab PO DAILY [facility] Stop: 09/07/18 08:59 Last Admin: 07/14/18 09:58 Dose: 1 tab Spironolactone (Aldactone) 25 mg PO DAILY [facility] Stop: 09/07/18 08:59 Last Admin: 07/14/18 09:58 Dose: 25 mg Trazodone HCl (Desyrel) 25 mg PO HS [facility]; Protocol Stop: 09/06/18 22:59 Last Admin: 07/13/18 21:04 Dose: 25 mg Zolpidem Tartrate (Ambien) 5 mg PO HS PRN PRN Reason: Insomnia Stop: 09/06/18 21:44 Last Admin: 07/12/18 21:08 Dose: 5 mg General: demented HEENT: NC/AT Neck: Supple, No JVD Lungs: CTAB Cardiovascular: RRR, Normal S1, Normal S2, without murmur Abdomen: soft, non-distended, positive bowel sound Extremities: excoriation, contracture Neurological: no change, disorganized Internal Medicine Assmt/Plan - Assessment Assessment: htn dementia oa - Plan Plan: continue on diuretics pain control fall precaution dvt and gastritis prophylaxis dw rn Nutritional Asmnt/Malnutr-PDOC - Dietary Evaluation Malnutrition Findings (Please click <Entered> for more info): Nutritional Asmnt/Malnutrition Start: 07/12/18 11: 04 Text: Status: Complete Freq: Protocol: Document 07/12/18 11:08 ALANNAH (Rec: 07/12/18 11:27 HEN [email or web address]) Nutritional Asmnt/Malnutrition Patient General Information Nutritional Screening Moderate Risk Diagnosis psychosis Pertinent Medical Hx/Surgical Hx psy chronic pain neuropathy Subjective Information per EMR, PO intake 100%. Current Diet Order/ Nutrition Support mech soft chopped, ANDREW Pertinent Medications vit C, colace, iron, culturelle, theragran Pertinent Labs 07/08 Cl 108 Nutritional Hx/Data Height 1.63 m Height (Calculated Centimeters) 162.6 Current Weight (lbs) 58.967 kg Weight (Calculated Kilograms) 59.0 Weight (Calculated Grams) 81145.0 [place] Body Weight 120 Body Mass Index (BMI) 22.3 Weight Status Approriate GI Symptoms GI Symptoms None Last BM 07/10 x 2 Difficult in: None Skin Integrity/Comment: ashkan Mcintyre Current %PO Good (75-100%) Estimated Nutritional Goals BEE in Kcals: Using Current wt Calories/Kcals/Kg 25-30 Kcals Calculated 6798-9363 Protein: Using Current wt Protein g/k Protein Calculated 59 Fluid: ml 1475-1770ml (1ml/kcal) Nutritional Problem No current Nutrition Prob Problem N/A Intervention/Recommendation Comments 1. Continue with mech soft chopped ANDREW diet as ordered. 2. Monitor PO intake, wt, labs and skin integrity 3. F/U as low risk in 7 days Expected Outcomes/Goals Expected Outcomes/Goals 1. PO intake to meet at least 75% of nutritional needs. 2. Wt stability, skin to remain intact, labs to approach WNL.
--- NOTE | 2018-07-14 17:30 | Progress Notes ---
DATE: 07/14/2018 SUBJECTIVE: Staff was spoken to. The patient is interviewed. Mood is noted to be dysphoric. The patient has been confused and disoriented. The patient has no insight into her illness, but the patient is stating that she is feeling depressed. ASSESSMENT: The patient is still depressed. PLAN: To continue the patient with supportive therapy and followup. JOB# [id number]
[2018-07-15] MEDS: Ferrous Sulfate 325 MG TAB PO SCH ×2 (08:53→16:28)
[2018-07-15] MEDS: Lactobacillus Rhamnosus GG 15 Billion CFU CAP.SPRINK PO SCH (08:53)
[2018-07-15] MEDS: Multivitamin Tab PO SCH (08:53)
--- NOTE | 2018-07-15 11:14 | Internal Medicine Prog Note ---
Internal Medicine Subjective - Subjective Patient seen and examined:: with staff, chart reviewed Patient is:: asleep, non-interactive, in bed Per staff patient has:: no adverse event, no episodes of fall, poor appetite, tolerating meds Internal Medicine Objective - Results Result Diagrams: 07/08/18 19:50 07/08/18 19:50 Recent Labs: Laboratory Last Values WBC 9.0 Th/cmm (4.8-10.8) 07/08/18 19:50 RBC 4.06 Mil/cmm (3.80-5.20) 07/08/18 19:50 Hgb 12.3 gm/dL (12-16) 07/08/18 19:50 Hct 37.8 % (41.0-60) L 07/08/18 19:50 MCV 93.2 fl (81-100) 07/08/18 19:50 MCH 30.4 pg (27.0-31.0) 07/08/18 19:50 MCHC Differential 32.6 pg (28.0-36.0) 07/08/18 19:50 RDW 17.5 % (11.5-20.0) 07/08/18 19:50 Plt Count 325 Th/cmm (150-400) 07/08/18 19:50 MPV 7.5 fl 07/08/18 19:50 Neutrophils % 63.3 % (40.0-80.0) 07/08/18 19:50 Lymphocytes % 25.5 % (20.0-50.0) 07/08/18 19:50 Monocytes % 8.1 % (2.0-10.0) 07/08/18 19:50 Eosinophils % 1.5 % (0.0-5.0) 07/08/18 19:50 Basophils % 1.6 % (0.0-2.0) 07/08/18 19:50 Sodium 139 mEq/L (136-145) 07/08/18 19:50 Potassium 4.1 mEq/L (3.5-5.1) 07/08/18 19:50 Chloride 108 mEq/L (98-107) H 07/08/18 19:50 Carbon Dioxide 23.9 mEq/L (21.0-31.0) 07/08/18 19:50 Anion Gap 11.2 (7.0-16.0) 07/08/18 19:50 BUN 15 mg/dL (7-25) 07/08/18 19:50 Creatinine 0.6 mg/dL (0.6-1.2) 07/08/18 19:50 Est GFR ( Amer) > 60.0 ml/min (>90) 07/08/18 19:50 Est GFR (Non-Af Amer) > 60.0 ml/min 07/08/18 19:50 BUN/Creatinine Ratio 25.0 07/08/18 19:50 Glucose 97 mg/dL (70-105) 07/08/18 19:50 POC Glucose 94 MG/DL (70 - 105) 07/14/18 16:46 Calcium 8.8 mg/dL (8.6-10.3) 07/08/18 19:50 Triglycerides 74 mg/dL (<150) 07/08/18 19:50 Cholesterol 167 mg/dL (<200) 07/08/18 19:50 LDL Cholesterol Direct 107 mg/dL (75-193) 07/08/18 19:50 HDL Cholesterol 53 mg/dL (23-92) 07/08/18 19:50 - Physical Exam Vitals and I&O: Vital Signs Temp 97.8 F 07/15/18 06:06 Pulse 60 07/15/18 08:53 Resp 18 07/15/18 06:06 BP 110/66 07/15/18 08:53 Pulse Ox 97 07/15/18 06:06 Intake & Output 07/14/18 07/15/18 07/15/18 18:59 06:59 18:59 Intake Total 120 Balance 120 Intake: Oral 120 Other: # Voids 4 3 # Bowel Movements 1 Active Medications: Current Medications Acetaminophen (Tylenol) 650 mg PO Q4H PRN PRN Reason: Mild Pain / Temp above 100 Stop: 09/06/18 23:08 Acetaminophen/Hydrocodone Bitart ([place] 5mg/325mg) 1 tab PO Q6H PRN PRN Reason: Pain (Severe) Stop: 09/06/18 23:02 Last Admin: 07/13/18 17:02 Dose: 1 tab Alprazolam (Xanax) 0.25 mg PO BID PRN; Protocol PRN Reason: Anxiety Stop: 09/07/18 08:59 Last Admin: 07/10/18 08:38 Dose: 0.25 mg Ascorbic Acid (Vitamin C) 500 mg PO DAILY [facility] Stop: 09/07/18 08:59 Last Admin: 07/15/18 08:53 Dose: 500 mg Docusate Sodium (Colace) 100 mg PO BID [facility] Stop: 09/07/18 08:59 Last Admin: 07/15/18 08:53 Dose: 100 mg Ferrous Sulfate (Iron) 325 mg PO BID [facility] Stop: 09/07/18 08:59 Last Admin: 07/15/18 08:53 Dose: 325 mg Fluoxetine HCl (Prozac) 20 mg PO DAILY [facility]; Protocol Stop: 09/11/18 08:59 Last Admin: 07/15/18 08:53 Dose: 20 mg Gabapentin (Neurontin) 300 mg PO TID [facility] Stop: 09/07/18 08:59 Last Admin: 07/15/18 08:53 Dose: 300 mg Ibuprofen (Motrin) 800 mg PO TID PRN PRN Reason: moderate pain Stop: 09/07/18 08:59 Last Admin: 07/14/18 15:05 Dose: 800 mg Lactobacillus Rhamnosus (Culturelle 15b) 1 each PO DAILY [facility] Stop: 09/07/18 08:59 Last Admin: 07/15/18 08:53 Dose: 1 each Magnesium Hydroxide (Milk Of Magnesia) 30 ml PO DAILY PRN PRN Reason: bowel maintenance Stop: 09/07/18 08:59 Multivitamins/Vitamin C (Theragran) 1 tab PO DAILY [facility] Stop: 09/07/18 08:59 Last Admin: 07/15/18 08:53 Dose: 1 tab Spironolactone (Aldactone) 25 mg PO DAILY [facility] Stop: 09/07/18 08:59 Last Admin: 07/15/18 08:53 Dose: 25 mg Trazodone HCl (Desyrel) 25 mg PO HS [facility]; Protocol Stop: 09/06/18 22:59 Last Admin: 07/14/18 21:07 Dose: 25 mg Zolpidem Tartrate (Ambien) 5 mg PO HS PRN PRN Reason: Insomnia Stop: 09/06/18 21:44 Last Admin: 07/12/18 21:08 Dose: 5 mg General: demented HEENT: NC/AT Neck: Supple, No JVD Lungs: CTAB Cardiovascular: RRR, Normal S1, Normal S2, without murmur Abdomen: soft, non-distended, positive bowel sound Extremities: excoriation, contracture Neurological: no change, disorganized Internal Medicine Assmt/Plan - Assessment Assessment: htn dementia oa - Plan Plan: continue on diuretics pain control fall precaution dvt and gastritis prophylaxis bhumi rn Nutritional Asmnt/Malnutr-PDOC - Dietary Evaluation Malnutrition Findings (Please click <Entered> for more info): Nutritional Asmnt/Malnutrition Start: 07/12/18 11: 04 Text: Status: Complete Freq: Protocol: Document 07/12/18 11:08 MANNYG (Rec: 07/12/18 11:27 ALANNAH [email or web address]) Nutritional Asmnt/Malnutrition Patient General Information Nutritional Screening Moderate Risk Diagnosis psychosis Pertinent Medical Hx/Surgical Hx psy chronic pain neuropathy Subjective Information per EMR, PO intake 100%. Current Diet Order/ Nutrition Support mech soft chopped, ANDREW Pertinent Medications vit C, colace, iron, culturelle, theragran Pertinent Labs 07/08 Cl 108 Nutritional Hx/Data Height 1.63 m Height (Calculated Centimeters) 162.6 Current Weight (lbs) 58.967 kg Weight (Calculated Kilograms) 59.0 Weight (Calculated Grams) 99307.0 [place] Body Weight 120 Body Mass Index (BMI) 22.3 Weight Status Approriate GI Symptoms GI Symptoms None Last BM 5/ x 2 Difficult in: None Skin Integrity/Comment: ashkan Mcintyre Current %PO Good (75-100%) Estimated Nutritional Goals BEE in Kcals: Using Current wt Calories/Kcals/Kg 25-30 Kcals Calculated 5399-3308 Protein: Using Current wt Protein g/k Protein Calculated 59 Fluid: ml 1475-1770ml (1ml/kcal) Nutritional Problem No current Nutrition Prob Problem N/A Intervention/Recommendation Comments 1. Continue with mech soft chopped ANDREW diet as ordered. 2. Monitor PO intake, wt, labs and skin integrity 3. F/U as low risk in 7 days Expected Outcomes/Goals Expected Outcomes/Goals 1. PO intake to meet at least 75% of nutritional needs. 2. Wt stability, skin to remain intact, labs to approach WNL.
--- NOTE | 2018-07-16 04:08 | Progress Notes ---
DATE: 07/15/2018 PSYCHIATRIC PROGRESS NOTE SUBJECTIVE: Staff was spoken to. The patient is interviewed. Mood is noted to be irritable. Affect is constricted. Insight and judgment are noted to be still impaired. Impulse control is noted to be poor. The patient is still depressed and is getting easily frustrated. Coping skills are noted to be extremely poor. ASSESSMENT: The patient is still depressed. PLAN: To continue the patient with the supportive therapy. I encouraged the patient to verbalize the concerns rather than to act out. [facility]# [id number]
[2018-07-16] MEDS: Multivitamin Tab PO SCH (08:55)
[2018-07-16] MEDS: Ferrous Sulfate 325 MG TAB PO SCH ×2 (08:55→16:26)
[2018-07-16] MEDS: Lactobacillus Rhamnosus GG 15 Billion CFU CAP.SPRINK PO SCH (08:56)
--- NOTE | 2018-07-16 09:50 | Progress Notes ---
DATE: 07/15/2018 PSYCHOLOGY PROGRESS NOTE SUBJECTIVE: The patient is seen and is interviewed. Case is discussed with staff. The patient presents as depressed and sullen. The patient continues to be quite confused with very limited insight into her illness and the reasons for her hospitalization. Staff reports the patient is taking her p.o. medications. OBJECTIVE: Mood is dysphoric. Affect is sullen and mood congruent. Thought process shows to be confused. The patient did not answer questions about suicidal ideation. She did not answer questions about hallucinations or delusions. The patient's behavior is withdrawn. ASSESSMENT: The patient continues to be depressed, confused and disoriented. We provided reality orientation, differentiation and integration. We provided remotivation for the patient to become compliant and stay compliant with her care and treatment. We provided coping strategies for phase of life issues. We provided a simple cognitive behavioral therapeutic approach to assist the patient in reducing her depression. The patient struggled with following this skill and intervention. We will follow the patient and continue to provide treatment in the next 2 days. JOB# [id number] DANDRE
--- NOTE | 2018-07-16 11:53 | Internal Medicine Prog Note ---
Internal Medicine Subjective - Subjective Patient seen and examined:: with staff, chart reviewed Patient is:: asleep, non-interactive, in bed Per staff patient has:: no adverse event, no episodes of fall, poor appetite, tolerating meds Internal Medicine Objective - Results Result Diagrams: 07/08/18 19:50 07/08/18 19:50 Recent Labs: Laboratory Last Values WBC 9.0 Th/cmm (4.8-10.8) 07/08/18 19:50 RBC 4.06 Mil/cmm (3.80-5.20) 07/08/18 19:50 Hgb 12.3 gm/dL (12-16) 07/08/18 19:50 Hct 37.8 % (41.0-60) L 07/08/18 19:50 MCV 93.2 fl (81-100) 07/08/18 19:50 MCH 30.4 pg (27.0-31.0) 07/08/18 19:50 MCHC Differential 32.6 pg (28.0-36.0) 07/08/18 19:50 RDW 17.5 % (11.5-20.0) 07/08/18 19:50 Plt Count 325 Th/cmm (150-400) 07/08/18 19:50 MPV 7.5 fl 07/08/18 19:50 Neutrophils % 63.3 % (40.0-80.0) 07/08/18 19:50 Lymphocytes % 25.5 % (20.0-50.0) 07/08/18 19:50 Monocytes % 8.1 % (2.0-10.0) 07/08/18 19:50 Eosinophils % 1.5 % (0.0-5.0) 07/08/18 19:50 Basophils % 1.6 % (0.0-2.0) 07/08/18 19:50 Sodium 139 mEq/L (136-145) 07/08/18 19:50 Potassium 4.1 mEq/L (3.5-5.1) 07/08/18 19:50 Chloride 108 mEq/L (98-107) H 07/08/18 19:50 Carbon Dioxide 23.9 mEq/L (21.0-31.0) 07/08/18 19:50 Anion Gap 11.2 (7.0-16.0) 07/08/18 19:50 BUN 15 mg/dL (7-25) 07/08/18 19:50 Creatinine 0.6 mg/dL (0.6-1.2) 07/08/18 19:50 Est GFR ( Amer) > 60.0 ml/min (>90) 07/08/18 19:50 Est GFR (Non-Af Amer) > 60.0 ml/min 07/08/18 19:50 BUN/Creatinine Ratio 25.0 07/08/18 19:50 Glucose 97 mg/dL (70-105) 07/08/18 19:50 POC Glucose 94 MG/DL (70 - 105) 07/14/18 16:46 Calcium 8.8 mg/dL (8.6-10.3) 07/08/18 19:50 Triglycerides 74 mg/dL (<150) 07/08/18 19:50 Cholesterol 167 mg/dL (<200) 07/08/18 19:50 LDL Cholesterol Direct 107 mg/dL (75-193) 07/08/18 19:50 HDL Cholesterol 53 mg/dL (23-92) 07/08/18 19:50 - Physical Exam Vitals and I&O: Vital Signs Temp 97.8 F 07/16/18 06:28 Pulse 64 07/16/18 08:55 Resp 20 07/16/18 08:00 BP 111/73 07/16/18 08:55 Pulse Ox 92 07/16/18 06:28 Intake & Output 07/15/18 07/16/18 07/16/18 18:59 06:59 18:59 Intake Total 120 Balance 120 Weight (lbs) 58.967 kg Intake: Oral 120 Other: # Voids 3 # Bowel Movements 0 Weight Source Bedscale Active Medications: Current Medications Acetaminophen (Tylenol) 650 mg PO Q4H PRN PRN Reason: Mild Pain / Temp above 100 Stop: 09/06/18 23:08 Acetaminophen/Hydrocodone Bitart ([place] 5mg/325mg) 1 tab PO Q6H PRN PRN Reason: Pain (Severe) Stop: 09/06/18 23:02 Last Admin: 07/13/18 17:02 Dose: 1 tab Alprazolam (Xanax) 0.25 mg PO BID PRN; Protocol PRN Reason: Anxiety Stop: 09/07/18 08:59 Last Admin: 07/10/18 08:38 Dose: 0.25 mg Ascorbic Acid (Vitamin C) 500 mg PO DAILY [facility] Stop: 09/07/18 08:59 Last Admin: 07/16/18 08:56 Dose: 500 mg Docusate Sodium (Colace) 100 mg PO BID [facility] Stop: 09/07/18 08:59 Last Admin: 07/16/18 08:55 Dose: 100 mg Ferrous Sulfate (Iron) 325 mg PO BID [facility] Stop: 09/07/18 08:59 Last Admin: 07/16/18 08:55 Dose: 325 mg Fluoxetine HCl (Prozac) 20 mg PO DAILY [facility]; Protocol Stop: 09/11/18 08:59 Last Admin: 07/16/18 08:55 Dose: 20 mg Gabapentin (Neurontin) 300 mg PO TID [facility] Stop: 09/07/18 08:59 Last Admin: 07/16/18 08:55 Dose: 300 mg Ibuprofen (Motrin) 800 mg PO TID PRN PRN Reason: moderate pain Stop: 09/07/18 08:59 Last Admin: 07/14/18 15:05 Dose: 800 mg Lactobacillus Rhamnosus (Culturelle 15b) 1 each PO DAILY [facility] Stop: 09/07/18 08:59 Last Admin: 07/16/18 08:56 Dose: 1 each Magnesium Hydroxide (Milk Of Magnesia) 30 ml PO DAILY PRN PRN Reason: bowel maintenance Stop: 09/07/18 08:59 Multivitamins/Vitamin C (Theragran) 1 tab PO DAILY [facility] Stop: 09/07/18 08:59 Last Admin: 07/16/18 08:55 Dose: 1 tab Spironolactone (Aldactone) 25 mg PO DAILY [facility] Stop: 09/07/18 08:59 Last Admin: 07/16/18 08:55 Dose: 25 mg Trazodone HCl (Desyrel) 25 mg PO HS [facility]; Protocol Stop: 09/06/18 22:59 Last Admin: 07/15/18 21:39 Dose: 25 mg Zolpidem Tartrate (Ambien) 5 mg PO HS PRN PRN Reason: Insomnia Stop: 09/06/18 21:44 Last Admin: 07/12/18 21:08 Dose: 5 mg General: demented HEENT: NC/AT Neck: Supple, No JVD Lungs: CTAB Cardiovascular: RRR, Normal S1, Normal S2, without murmur Abdomen: soft, non-distended, positive bowel sound Extremities: excoriation, contracture Neurological: no change, disorganized Internal Medicine Assmt/Plan - Assessment Assessment: htn dementia oa - Plan Plan: continue on diuretics pain control fall precaution dvt and gastritis prophylaxis bhumi rn Nutritional Asmnt/Malnutr-PDOC - Dietary Evaluation Malnutrition Findings (Please click <Entered> for more info): Nutritional Asmnt/Malnutrition Start: 07/12/18 11: 04 Text: Status: Complete Freq: Protocol: Document 07/12/18 11:08 LIDIA (Rec: 07/12/18 11:27 LIDIA [email or web address]) Nutritional Asmnt/Malnutrition Patient General Information Nutritional Screening Moderate Risk Diagnosis psychosis Pertinent Medical Hx/Surgical Hx psy chronic pain neuropathy Subjective Information per EMR, PO intake 100%. Current Diet Order/ Nutrition Support mech soft chopped, ANDREW Pertinent Medications vit C, colace, iron, culturelle, theragran Pertinent Labs 07/08 Cl 108 Nutritional Hx/Data Height 1.63 m Height (Calculated Centimeters) 162.6 Current Weight (lbs) 58.967 kg Weight (Calculated Kilograms) 59.0 Weight (Calculated Grams) 80753.0 [place] Body Weight 120 Body Mass Index (BMI) 22.3 Weight Status Approriate GI Symptoms GI Symptoms None Last BM 07/10 x 2 Difficult in: None Skin Integrity/Comment: ashkan 15 Current %PO Good (75-100%) Estimated Nutritional Goals BEE in Kcals: Using Current wt Calories/Kcals/Kg 25-30 Kcals Calculated 4334-5038 Protein: Using Current wt Protein g/k Protein Calculated 59 Fluid: ml 1475-1770ml (1ml/kcal) Nutritional Problem No current Nutrition Prob Problem N/A Intervention/Recommendation Comments 1. Continue with mech soft chopped ANDREW diet as ordered. 2. Monitor PO intake, wt, labs and skin integrity 3. F/U as low risk in 7 days Expected Outcomes/Goals Expected Outcomes/Goals 1. PO intake to meet at least 75% of nutritional needs. 2. Wt stability, skin to remain intact, labs to approach WNL.
--- NOTE | 2018-07-17 01:01 | Progress Notes ---
DATE: 07/16/2018 PSYCHIATRIC PROGRESS NOTE SUBJECTIVE: Staff was spoken to. The patient is noted to be anxious. The patient's insight and judgment are noted to be improving. Impulse control seems to be fair. The patient's depression is resolving. No side effects to the medications are noted. The patient is able to tolerate the antidepressant medications. Since the patient's sleep is noted to be poor, the patient's trazadone has been increased to 50 mg at bedtime. PLAN: To continue the patient with supportive therapy. I encouraged the patient to verbalize the concerns rather than to act out. JOB# [id number]
[2018-07-17] MEDS: Ferrous Sulfate 325 MG TAB PO SCH ×2 (09:12→16:14)
[2018-07-17] MEDS: Multivitamin Tab PO SCH (09:13)
[2018-07-17] MEDS: Lactobacillus Rhamnosus GG 15 Billion CFU CAP.SPRINK PO SCH (09:13)
--- NOTE | 2018-07-17 11:47 | Internal Medicine Prog Note ---
Internal Medicine Subjective - Subjective Patient seen and examined:: with staff, chart reviewed Patient is:: asleep, non-interactive, in bed Per staff patient has:: no adverse event, no episodes of fall, poor appetite, tolerating meds Internal Medicine Objective - Results Result Diagrams: 07/08/18 19:50 07/08/18 19:50 Recent Labs: Laboratory Last Values WBC 9.0 Th/cmm (4.8-10.8) 07/08/18 19:50 RBC 4.06 Mil/cmm (3.80-5.20) 07/08/18 19:50 Hgb 12.3 gm/dL (12-16) 07/08/18 19:50 Hct 37.8 % (41.0-60) L 07/08/18 19:50 MCV 93.2 fl (81-100) 07/08/18 19:50 MCH 30.4 pg (27.0-31.0) 07/08/18 19:50 MCHC Differential 32.6 pg (28.0-36.0) 07/08/18 19:50 RDW 17.5 % (11.5-20.0) 07/08/18 19:50 Plt Count 325 Th/cmm (150-400) 07/08/18 19:50 MPV 7.5 fl 07/08/18 19:50 Neutrophils % 63.3 % (40.0-80.0) 07/08/18 19:50 Lymphocytes % 25.5 % (20.0-50.0) 07/08/18 19:50 Monocytes % 8.1 % (2.0-10.0) 07/08/18 19:50 Eosinophils % 1.5 % (0.0-5.0) 07/08/18 19:50 Basophils % 1.6 % (0.0-2.0) 07/08/18 19:50 Sodium 139 mEq/L (136-145) 07/08/18 19:50 Potassium 4.1 mEq/L (3.5-5.1) 07/08/18 19:50 Chloride 108 mEq/L (98-107) H 07/08/18 19:50 Carbon Dioxide 23.9 mEq/L (21.0-31.0) 07/08/18 19:50 Anion Gap 11.2 (7.0-16.0) 07/08/18 19:50 BUN 15 mg/dL (7-25) 07/08/18 19:50 Creatinine 0.6 mg/dL (0.6-1.2) 07/08/18 19:50 Est GFR ( Amer) > 60.0 ml/min (>90) 07/08/18 19:50 Est GFR (Non-Af Amer) > 60.0 ml/min 07/08/18 19:50 BUN/Creatinine Ratio 25.0 07/08/18 19:50 Glucose 97 mg/dL (70-105) 07/08/18 19:50 POC Glucose 94 MG/DL (70 - 105) 07/14/18 16:46 Calcium 8.8 mg/dL (8.6-10.3) 07/08/18 19:50 Triglycerides 74 mg/dL (<150) 07/08/18 19:50 Cholesterol 167 mg/dL (<200) 07/08/18 19:50 LDL Cholesterol Direct 107 mg/dL (75-193) 07/08/18 19:50 HDL Cholesterol 53 mg/dL (23-92) 07/08/18 19:50 - Physical Exam Vitals and I&O: Vital Signs Temp 97.7 F 07/17/18 06:16 Pulse 103 07/17/18 09:13 Resp 20 07/17/18 06:16 BP 126/58 07/17/18 09:13 Pulse Ox 94 07/17/18 06:16 Intake & Output 07/16/18 07/17/18 07/17/18 18:59 06:59 18:59 Intake Total 1100 300 Output Total 1 Balance 1100 299 Intake: Oral 980 300 Other 120 Output: Urine/Stool Mix 1 Other: # Voids 3 2 # Bowel Movements 1 0 Active Medications: Current Medications Acetaminophen (Tylenol) 650 mg PO Q4H PRN PRN Reason: Mild Pain / Temp above 100 Stop: 09/06/18 23:08 Acetaminophen/Hydrocodone Bitart ([place] 5mg/325mg) 1 tab PO Q6H PRN PRN Reason: Pain (Severe) Stop: 09/06/18 23:02 Last Admin: 07/13/18 17:02 Dose: 1 tab Alprazolam (Xanax) 0.25 mg PO BID PRN; Protocol PRN Reason: Anxiety Stop: 09/07/18 08:59 Last Admin: 07/10/18 08:38 Dose: 0.25 mg Ascorbic Acid (Vitamin C) 500 mg PO DAILY [facility] Stop: 09/07/18 08:59 Last Admin: 07/17/18 09:12 Dose: 500 mg Docusate Sodium (Colace) 100 mg PO BID [facility] Stop: 09/07/18 08:59 Last Admin: 07/17/18 09:12 Dose: 100 mg Ferrous Sulfate (Iron) 325 mg PO BID [facility] Stop: 09/07/18 08:59 Last Admin: 07/17/18 09:12 Dose: 325 mg Fluoxetine HCl (Prozac) 20 mg PO DAILY [facility]; Protocol Stop: 09/11/18 08:59 Last Admin: 07/17/18 09:12 Dose: 20 mg Gabapentin (Neurontin) 300 mg PO TID [facility] Stop: 09/07/18 08:59 Last Admin: 07/17/18 09:13 Dose: 300 mg Ibuprofen (Motrin) 800 mg PO TID PRN PRN Reason: moderate pain Stop: 09/07/18 08:59 Last Admin: 07/14/18 15:05 Dose: 800 mg Lactobacillus Rhamnosus (Culturelle 15b) 1 each PO DAILY [facility] Stop: 09/07/18 08:59 Last Admin: 07/17/18 09:13 Dose: 1 each Magnesium Hydroxide (Milk Of Magnesia) 30 ml PO DAILY PRN PRN Reason: bowel maintenance Stop: 09/07/18 08:59 Multivitamins/Vitamin C (Theragran) 1 tab PO DAILY [facility] Stop: 09/07/18 08:59 Last Admin: 07/17/18 09:13 Dose: 1 tab Spironolactone (Aldactone) 25 mg PO DAILY [facility] Stop: 09/07/18 08:59 Last Admin: 07/17/18 09:13 Dose: 25 mg Trazodone HCl (Desyrel) 50 mg PO HS [facility]; Protocol Stop: 09/14/18 20:59 Last Admin: 07/16/18 21:47 Dose: 50 mg General: demented HEENT: NC/AT Neck: Supple, No JVD Lungs: CTAB Cardiovascular: RRR, Normal S1, Normal S2, without murmur Abdomen: soft, non-distended, positive bowel sound Extremities: excoriation, contracture Neurological: no change, disorganized Internal Medicine Assmt/Plan - Assessment Assessment: htn dementia oa - Plan Plan: continue on diuretics pain control fall precaution dvt and gastritis prophylaxis bhumi rn Nutritional Asmnt/Malnutr-PDOC - Dietary Evaluation Malnutrition Findings (Please click <Entered> for more info): Nutritional Asmnt/Malnutrition Start: 07/12/18 11: 04 Text: Status: Complete Freq: Protocol: Document 07/12/18 11:08 LIDIA (Rec: 07/12/18 11:27 LCERNESTO [email or web address]) Nutritional Asmnt/Malnutrition Patient General Information Nutritional Screening Moderate Risk Diagnosis psychosis Pertinent Medical Hx/Surgical Hx psy chronic pain neuropathy Subjective Information per EMR, PO intake 100%. Current Diet Order/ Nutrition Support mech soft chopped, ANDREW Pertinent Medications vit C, colace, iron, culturelle, theragran Pertinent Labs 07/08 Cl 108 Nutritional Hx/Data Height 1.63 m Height (Calculated Centimeters) 162.6 Current Weight (lbs) 58.967 kg Weight (Calculated Kilograms) 59.0 Weight (Calculated Grams) 78024.0 [place] Body Weight 120 Body Mass Index (BMI) 22.3 Weight Status Approriate GI Symptoms GI Symptoms None Last BM 5/ x 2 Difficult in: None Skin Integrity/Comment: ashkan Mcintyre Current %PO Good (75-100%) Estimated Nutritional Goals BEE in Kcals: Using Current wt Calories/Kcals/Kg 25-30 Kcals Calculated 4061-5812 Protein: Using Current wt Protein g/k Protein Calculated 59 Fluid: ml 1475-1770ml (1ml/kcal) Nutritional Problem No current Nutrition Prob Problem N/A Intervention/Recommendation Comments 1. Continue with mech soft chopped ANDREW diet as ordered. 2. Monitor PO intake, wt, labs and skin integrity 3. F/U as low risk in 7 days Expected Outcomes/Goals Expected Outcomes/Goals 1. PO intake to meet at least 75% of nutritional needs. 2. Wt stability, skin to remain intact, labs to approach WNL.
--- NOTE | 2018-07-17 22:51 | Progress Notes ---
DATE: 07/17/2018 SUBJECTIVE: Staff was spoken to. The patient is interviewed. Mood is noted to be anxious. Affect is appropriate. The patient is not suicidal or homicidal. Insight and judgment are noted to be improving. Impulse control seems to be fair. No side effects to the medications are noted. The patient is willing to comply with the treatment. ASSESSMENT: The patient is stabilizing. PLAN: To discharge the patient today for followup on outpatient basis. [facility]# [id number]
--- NOTE | 2018-07-18 05:28 | Progress Notes ---
DATE: 07/17/2018 PSYCHOLOGY PROGRESS NOTE SUBJECTIVE: The patient is seen and is interviewed. Case is discussed with staff. The patient presents as anxious and nervous. The staff reports the patient's impulse control seems to be improving. The patient states that she feels less depressed. The patient did not have any other complaints about distress. OBJECTIVE: Mood is anxious. Affect is mood congruent. Thought process shows to be confused, but more goal oriented. The patient denied any hallucinations or delusions. The patient's behavior is compliant with her care and taking her p.o. medications. ASSESSMENT AND PLAN: The patient seems to be improving. We provided positive reinforcement for the patient to stay compliant with her care and treatment. We provided coping strategies for phase of life issues. We encouraged the patient to demonstrate emotional and self-regulation and to verbalize her concerns rather than act out. We will follow up in 2 days to continue the present treatment if the patient remains admitted on the unit. JOB# [id number] DANDRE
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
== END 2018-07-17 16:40 | DRG 885 ==
LOC: ER 18:59 → GERO2 20:26 → GERO 07-10 11:20
PROVIDERS: ADMIT Psychiatry & Neurology Psychiatry; ATTEND Psychiatry & Neurology Psychiatry
DX: F31.9 Bipolar disorder, unspecified (principal); I10 Essential (primary) hypertension; M19.90 Unspecified osteoarthritis, unspecified site; F03.90 Unspecified dementia, unspecified severity, without behavioral disturbance, psychotic disturbance, mood disturbance, and anxiety; G62.9 Polyneuropathy, unspecified; F41.9 Anxiety disorder, unspecified; G89.4 Chronic pain syndrome; Z88.2 Allergy status to sulfonamides
CPT/HCPCS: 36415-UA; 80048-TC; 80061-TC; 82948-90; 83036-90; 85025-TC; G0410; Z7610